=== PATIENT | female | born 1965 ===

== ENCOUNTER 2017-03-04 17:19 | Emergency (ER) | payer OTHER ==
[2017-03-04 17:26] VITALS: RESP 18
[2017-03-04 18:36] LABS: BASO % 0.4 % (0.0-2.0); EOS # 0.1 K/uL (0.0-0.7); EOS % 1.1 % (0.0-4.0); LYMPH # 1.7 K/uL (1.0-4.3); LYMPH % 34.2 % (20.0-40.0); MEAN CELL VOLUME 91.1 fL (81.0-99.0); MEAN CORPUSCULAR HEMOGLOBIN 30.9 pg (27.0-31.0); MEAN CORPUSCULAR HGB CONC 33.9 g/dL (33.0-37.0); MEAN PLATELET VOLUME 8.1 fL (7.2-11.7); MONO # 0.6 K/uL (0.0-0.8); MONO % 11.3 % (0.0-10.0); NEUT # 2.7 K/uL (1.8-7.0); NRBC % 0.1 % (0.0-2.0); RBC 3.9 Mil/uL (3.80-5.20); RED CELL DISTRIBUTION WIDTH 14.1 % (11.5-14.5); WHITE BLOOD COUNT 5.1 K/uL (4.8-10.8)
[2017-03-04 18:48] LABS: ALBUMIN 4.1 g/dL (3.5-5.0)
[2017-03-04 18:51] LABS: GFR AFRICAN-AMERICAN > 60; GFR NON-AFRICAN AMERICAN > 60
[2017-03-04 18:52] LABS: ALB/GLOB RATIO 1.2 (1.0-2.1); ALT/SGPT 41 U/L (9-52); AST/SGOT 36 U/L (14-36); BLOOD UREA NITROGEN 12 mg/dL (7-17); CALCIUM 8.8 mg/dl (8.6-10.4)
[2017-03-04 19:00] LABS: B-TYPE NATRIURETIC PEPTIDE 30.1 pg/mL (0-900)
[2017-03-04] MEDS ORDERED: Potassium Chloride 20 mEq/15 ml LIQ UD PO STA (19:18)
[2017-03-04] MEDS ORDERED: Potassium Chloride 20 mEq ER Tab PO ONE (19:20)
[2017-03-04 21:17] VITALS: BP 132/84; PULSE 82; TEMP 98.2; O2SAT 99
--- NOTE | 2017-03-04 22:08 | C.PDOC ---
History Of Present Illness 51 year old female presents to the ED with complaints of bilateral foot and hand swelling with pain for one week. Patient states she awakes with pain but it is alleviated by movement. She denies trauma, chest pain, SOB, weakness, or numbness. Time Seen by Provider: 03/04/17 18:19 Chief Complaint (Nursing): Medical Clearance History Per: Patient History/Exam Limitations: no limitations Onset/Duration Of Symptoms: Days (1 week ) Current Symptoms Are (Timing): Still Present Recent travel outside of the [place]: No Past Medical History Reviewed: Historical Data, Nursing Documentation, Vital Signs Vital Signs: Last Vital Signs Temp 98.2 F 03/04/17 21:17 Pulse 82 03/04/17 21:17 Resp 18 03/04/17 21:17 BP 132/84 03/04/17 21:17 Pulse Ox 99 03/04/17 22:22 - Medical History PMH: Asthma Surgical History: Appendectomy - [facility] Procedures IRRIGATION OF EAR (02/23/15) OTHER SKIN & SUBQ I D (01/26/14) Family History: States: Unknown Family Hx - Social History Hx Tobacco Use: Yes Hx Alcohol Use: Yes Hx Substance Use: No - Immunization History Hx Tetanus Toxoid Vaccination: No Hx Influenza Vaccination: No Hx Pneumococcal Vaccination: No Review Of Systems Constitutional: Negative for: Fever, Chills Cardiovascular: Negative for: Chest Pain, Palpitations Respiratory: Negative for: Shortness of Breath Gastrointestinal: Negative for: Nausea, Vomiting Musculoskeletal: Positive for: Hand Pain (swelling and pain in bilateral hands) , Foot Pain (swelling in bilateral feet ) Neurological: Negative for: Weakness, Numbness Physical Exam - Physical Exam Appears: Non-toxic, No Acute Distress Skin: Warm, Dry Head: Atraumatic Eye(s): bilateral: Normal Inspection, PERRL, EOMI Oral Mucosa: Moist Neck: Supple Chest: Symmetrical, No Deformity Cardiovascular: Rhythm Regular Respiratory: Normal Breath Sounds, No Rhonchi, No Wheezing Extremity: Normal ROM, Tenderness (Tenderness to MCP joints of both hands ), Other (Edema of the lower extremities ) Neurological/Psych: Oriented x3 ED Course And Treatment - Laboratory Results Result Diagrams: 03/04/17 18:33 03/04/17 18:33 O2 Sat by Pulse Oximetry: 99 (room air ) Progress Note: Toradol and Flexeril were given and the patient notes improvement. Patient notes she does not have a PMD and was referred to the clinic to follow up. Disposition - Disposition Referrals: [facility] [Outside] [facility] [Outside] Disposition: HOME/ ROUTINE Disposition Time: 20:50 Condition: GOOD Additional Instructions: Thank you for letting us take care of you today. Your provider was Dr. Lozano. The emergency medical care you received today was directed at your acute symptoms. If you were prescribed any medication, please fill it and take as directed. It may take several days for your symptoms to resolve. Return to the Emergency Department if your symptoms worsen, do not improve, or if you have any other problems. Please contact your doctor or call one of the physicians/clinics you have been referred to that are listed on the Patient Visit Information form that is included in your discharge packet. Bring any paperwork you were given at discharge with you along with any medications you are taking to your follow up visit. Our treatment cannot replace ongoing medical care by a primary care provider (PCP) outside of the emergency department. Thank you for allowing the [facility] team to be part of your care today. Follow up with the clinic for outpatient care. Prescriptions: Cyclobenzaprine [Cyclobenzaprine HCl] 10 mg PO Q8 PRN #20 tab PRN Reason: Muscle Spasm Ibuprofen [Motrin] 600 mg PO Q6 PRN #20 tab PRN Reason: Pain, Moderate (4-7) predniSONE [Prednisone] 40 mg PO DAILY #10 tab Instructions: Arthritis (ED) Forms: [employer] ([place]) - Clinical Impression Clinical Impression: Arthritis - Scribe Statement The provider has reviewed the documentation as recorded by the Scribe Tiffany Devries All medical record entries made by the Scribe were at my direction and personally dictated by me. I have reviewed the chart and agree that the record accurately reflects my personal performance of the history, physical exam, medical decision making, and the department course for this patient. I have also personally directed, reviewed, and agree with the discharge instructions and disposition.
== END 2017-03-04 21:18 | disposition home or self-care (01) ==
LOC: C.ER 17:19
DX: M19.042 Primary osteoarthritis, left hand (principal); M19.041 Primary osteoarthritis, right hand; M19.072 Primary osteoarthritis, left ankle and foot; M19.071 Primary osteoarthritis, right ankle and foot
CPT/HCPCS: 80053; 83880; 85025; 85651; 87040; 96374; 99285; J1885

== ENCOUNTER 2017-04-08 16:06 | Inpatient (IN) | payer MEDICAID, OTHER ==
--- NOTE | 2017-04-08 17:33 | C.PDOC ---
History Of Present Illness Patient is a 52 y/o female who presents to the ED with complaints of chest pain and shortness of breath for the past three days. Patient notes she has pain on the right side of her body and bilateral swelling of the legs since onset of symptoms. Admits to gaining weight recently. Denies fever and any other complaints at this time. Time Seen by Provider: 04/08/17 17:20 Chief Complaint (Nursing): Shortness Of Breath History Per: Patient History/Exam Limitations: no limitations Onset/Duration Of Symptoms: Days (x3 days. ) Current Symptoms Are (Timing): Still Present Recent travel outside of the [place]: No Past Medical History Reviewed: Historical Data, Nursing Documentation, Vital Signs Vital Signs: Last Vital Signs Temp 98.1 F 04/09/17 16:09 Pulse 81 04/09/17 16:09 Resp 20 04/09/17 16:09 BP 147/77 04/09/17 16:09 Pulse Ox 97 04/09/17 16:09 - Medical History PMH: Asthma Surgical History: Appendectomy - [facility] Procedures IRRIGATION OF EAR (02/23/15) OTHER SKIN & SUBQ I D (01/26/14) Family History: States: Unknown Family Hx - Social History Hx Tobacco Use: Yes Hx Alcohol Use: Yes Hx Substance Use: No - Immunization History Hx Tetanus Toxoid Vaccination: No Hx Influenza Vaccination: No Hx Pneumococcal Vaccination: No Review Of Systems Except As Marked, All Systems Reviewed And Found Negative. Cardiovascular: Positive for: Chest Pain Respiratory: Positive for: Shortness of Breath Musculoskeletal: Positive for: Other (R sided body pain; bilateral leg swelling. ) Physical Exam - Physical Exam Appears: Well, Non-toxic, No Acute Distress Skin: Normal Color, Warm, Dry Head: Atraumatic, Normacephalic Oral Mucosa: Moist Chest: Symmetrical Cardiovascular: Rhythm Regular, No Murmur Respiratory: Normal Breath Sounds, No Rales, No Rhonchi, No Wheezing Gastrointestinal/Abdominal: Soft, No Tenderness Neurological/Psych: Oriented x3, Normal Speech, Normal Cognition ED Course And Treatment - Laboratory Results Result Diagrams: 04/08/17 17:52 04/08/17 17:52 ECG: Interpreted By Me, Viewed By Me ECG Rhythm: Sinus Bradycardia Rate From EC (bpm) O2 Sat by Pulse Oximetry: 99 (Room air) Pulse Ox Interpretation: Normal Progress Note: EKG, UA, Blood work, CXR ordered. Medical Decision Making Medical Decision Making: r/o pe, acs, dvt Plan: EKG, UA, Blood work, CXR ordered. dimer elevated, cta ordered. cta is non conclussive. discussed with dr cuevas, requests v/q, lovenox, obs admission. dr cuevas, on blue list, requests dr cano to [facility]- dr cano accepts Disposition - Disposition Disposition: HOSPITALIZED Disposition Time: 11:00 Condition: STABLE - Clinical Impression Clinical Impression: Chest pain, Leg swelling - Scribe Statement The provider has reviewed the documentation as recorded by the Scribe Angelina Leonard All medical record entries made by the Scribe were at my direction and personally dictated by me. I have reviewed the chart and agree that the record accurately reflects my personal performance of the history, physical exam, medical decision making, and the department course for this patient. I have also personally directed, reviewed, and agree with the discharge instructions and disposition. Decision To Admit - Pt Status Changed To: Hospital Disposition Of: Observation - . Bed Request Type: Telemetry Admitting Physician: Anthony Cano Patient Diagnosis: Chest pain, Leg swelling
[2017-04-08 17:55] LABS: BASO % 0.4 % (0.0-2.0); EOS % 0.3 % (0.0-4.0); LYMPH # 1.3 K/uL (1.0-4.3); LYMPH % 26.4 % (20.0-40.0); MEAN CELL VOLUME 92.7 fL (81.0-99.0); MEAN CORPUSCULAR HEMOGLOBIN 30.9 pg (27.0-31.0); MEAN CORPUSCULAR HGB CONC 33.3 g/dL (33.0-37.0); MEAN PLATELET VOLUME 8.2 fL (7.2-11.7); MONO # 0.5 K/uL (0.0-0.8); MONO % 9.5 % (0.0-10.0); RED CELL DISTRIBUTION WIDTH 13.9 % (11.5-14.5)
[2017-04-08 18:03] LABS: CHLORIDE 104 mmol/L (98-107); POTASSIUM 3.3 mmol/L (3.6-5.2); SODIUM 141 mmol/L (132-148)
[2017-04-08 18:05] LABS: ALB/GLOB RATIO 1.3 (1.0-2.1); ALKALINE PHOSPHATASE 79 U/L (38-126); AST/SGOT 26 U/L (14-36); BILIRUBIN,TOTAL 0.5 mg/dL (0.2-1.3); BLOOD UREA NITROGEN 16 mg/dL (7-17); CARBON DIOXIDE 26 mmol/L (22-30); GFR AFRICAN-AMERICAN > 60; TOTAL PROTEIN 7.2 g/dL (6.3-8.3)
[2017-04-08 18:06] LABS: ALT/SGPT 35 U/L (9-52); CALCIUM 8.7 mg/dl (8.6-10.4); GLUCOSE,RANDOM 93 mg/dL (65-105); INR 1.1
[2017-04-08] MEDS ORDERED: Iodixanol 320 MG/ML 100 ML BOTTLE IV ONE (18:54)
[2017-04-08 20:13] LABS: RBC URINE 1 /hpf (0-3); URINE BACTERIA OCC (<OCC); URINE BILIRUBIN NEGATIVE (NEGATIVE); URINE BLOOD NEGATIVE (NEGATIVE); URINE COLOR Yellow (YELLOW); URINE GLUCOSE (UA) NORMAL (Normal); URINE KETONE NEGATIVE (NEGATIVE); URINE LEUKOCYTE ESTERASE TRACE Leu/uL (Negative); URINE PROTEIN NEGATIVE (NEGATIVE); URINE UROBILINOGEN NORMAL mg/dL (0.2-1.0); WBC URINE 4 /hpf (0-5)
--- NOTE | 2017-04-08 20:18 | CT ---
EXAM: CT Angiography Chest With Intravenous Contrast EXAM DATE/TIME: 04/08/2017 6:27 PM CLINICAL HISTORY: 52 years old, female; Signs and symptoms; Dyspnea; Additional info: Cp SOB elevated dimer TECHNIQUE: Axial computed tomographic angiography images of the chest with intravenous contrast using pulmonary embolism protocol. All CT scans at this facility use one or more dose reduction techniques, viz.: automated exposure control; ma/kV adjustment per patient size (including targeted exams where dose is matched to indication; i.e. head); or iterative reconstruction technique. MIP reconstructed images were created and reviewed. Coronal and sagittal reformatted images were created and reviewed. CONTRAST: 100 mL of 100 ml visipaque 320 administered intravenously. COMPARISON: No relevant prior studies available. FINDINGS: PULMONARY ARTERIES: Contrast opacification of the pulmonary arteries is suboptimal. There is no evidence of pulmonary embolism involving the large/central pulmonary arteries. The exam is nondiagnostic for emboli in the smaller pulmonary artery branches, however, due to suboptimal IV contrast opacification. AORTA: No evidence of aortic dissection. LUNGS: Incidental 6 x 4 mm noncalcified pulmonary nodule in the right lung, image 59/series 3. Additional 3 mm noncalcified nodule in the right lung, image 59/series 3. In low-risk patients (minimal or absent history of smoking or other known risk factors), no follow-up is necessary. For high-risk patients (history of smoking or other known risk factors), an optional chest CT at 12 months could be performed. Patchy groundglass densities in the posterior aspects of the lungs bilaterally, with an appearance and location most suggestive of dependent atelectasis. No definite focal consolidation/infiltrate is seen in the lungs. No evidence of diffuse pulmonary vascular congestion. Patent large airways. PLEURAL SPACE: No pneumothorax or pleural effusions seen. HEART: No evidence of significant pericardial effusion. BONES/JOINTS: No acute bony abnormality identified. SOFT TISSUES: No acute abnormality of the visualized soft tissues seen. LYMPH NODES: No evidence of diffuse lymphadenopathy. IMPRESSION: - No evidence of significant acute process. However, the exam is nondiagnostic for pulmonary emboli except in the large/central pulmonary arteries, which appear grossly patent. If there is ongoing clinical concern for pulmonary emboli, consider V/Q scan or lower extremity venous ultrasound for further evaluation. - Incidental subcentimeter pumonary nodules. See recommendations above. - See above for remaining findings.
[2017-04-08] MEDS ORDERED: Potassium Chloride 20 mEq ER Tab PO STA (21:38)
[2017-04-08] MEDS ORDERED: Potassium Chloride 20 mEq ER Tab PO ONE (21:55)
[2017-04-08] MEDS ORDERED: Enoxaparin 150 mg Syringe SC STA (22:05)
[2017-04-08] MEDS ORDERED: Enoxaparin 80 mg Syringe SC STA (22:12)
--- NOTE | 2017-04-09 01:52 | CP.PCM.HP ---
<Michael Calderón - Last Filed: 04/09/17 01:32> History of Present Illness - History of Present Illness History of Present Illness: PGY1 Medicine Note for Dr. Cano 52 year old female with a PMH of asthma presents to the ED with a 3 day history of SOB, CP and UE/LE weakness b/l. The patient states that she started noticing pain in her neck a 3 days ago. She states that she did not have any trauma, did not sleep on it wrong and just began to notice the pain while at work. 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 Along with the pain in her neck, she began noticing pain in her UEs and LEs b/l. This pain is sharp, worse with movement and palpation. The patient states she has difficulty moving her joints due to the pain. The patient reports swelling b/l LE edema since the onset of cp and sob 3 days ago. She elevated her legs and the swelling has since resolved. The patient has attempted to take use her inhaler but it has not improved her sob. Patient denies ever having these symptoms previously. Patient denies fevers, chills, n/v, d/c PMH: Asthma PSH: Appendectomy Social: Current smoker, occasionally alcohol, denies illicit drug use. Allergies: NKDA Present on Admission - Present on Admission Any Indicators Present on Admission: No Review of Systems - Review of Systems All systems: reviewed and no additional remarkable complaints except - Constitutional Constitutional: As Per HPI - EENT Eyes: As Per HPI Ears: As Per HPI Nose/Mouth/Throat: As Per HPI - Breasts Breasts: As Per HPI - Cardiovascular Cardiovascular: As Per HPI - Respiratory Respiratory: As Per HPI - Gastrointestinal Gastrointestinal: As Per HPI - Genitourinary Genitourinary: As Per HPI - Reproductive: Female Reproductive:Female: As Per HPI - Menstruation Menstruation: As Per HPI - Musculoskeletal Musculoskeletal: As Per HPI - Integumentary Integumentary: As Per HPI - Neurological Neurological: As Per HPI - Psychiatric Psychiatric: As Per HPI - Endocrine Endocrine: As Per HPI - Hematologic/Lymphatic Hematologic: As Per HPI Past Patient History - Infectious Disease Hx of Infectious Diseases: None - Past Medical History & Family History Past Medical History?: Yes - Past Social History Smoking Status: Former Smoker - CARDIAC Hx Cardiac Disorders: No - PULMONARY Hx Respiratory Disorders: Yes Hx Asthma: Yes - NEUROLOGICAL Hx Neurological Disorder: No - HEENT Hx HEENT Problems: No - RENAL Hx Chronic Kidney Disease: No - ENDOCRINE/METABOLIC Hx Endocrine Disorders: No - HEMATOLOGICAL/ONCOLOGICAL Hx Blood Disorders: No - INTEGUMENTARY Hx Dermatological Problems: No - MUSCULOSKELETAL/RHEUMATOLOGICAL Hx Falls: No Other/Comment: had surgery for pack pain - GASTROINTESTINAL Hx Gastrointestinal Disorders: No - GENITOURINARY/GYNECOLOGICAL Hx Genitourinary Disorders: No - PSYCHIATRIC Hx Psychophysiologic Disorder: No Hx Substance Use: No - SURGICAL HISTORY Hx Surgeries: Yes Hx Appendectomy: Yes - ANESTHESIA Hx Anesthesia: Yes Hx Anesthesia Reactions: No Meds Allergies/Adverse Reactions: Allergies Allergy/AdvReac Type Severity Reaction Status Date / Time No Known Allergies Allergy Verified 03/04/17 17:26 Physical Exam - Constitutional Appears: Well, Non-toxic, No Acute Distress - Head Exam Head Exam: ATRAUMATIC, NORMOCEPHALIC - Eye Exam Eye Exam: EOMI, Normal appearance - ENT Exam ENT Exam: Mucous Membranes Moist - Neck Exam Neck exam: Positive for: Tenderness. Negative for: Meningismus Additional comments: Decreased ROM; Pain with passive/active ROM testing. Pain with compression of head on spinal cord. Unable to reproduce numbness/pain in extremities due to acute tenderness in neck. - Respiratory Exam Respiratory Exam: NORMAL BREATHING PATTERN. absent: Respiratory Distress - Cardiovascular Exam Cardiovascular Exam: REGULAR RHYTHM. absent: JVD - GI/Abdominal Exam GI & Abdominal Exam: Soft. absent: Distended - Extremities Exam Extremities exam: Positive for: calf tenderness (b/l), normal capillary refill, tenderness (tender to palpation of all four extremities; decreased ROM in all four extremities due to pain. ), pedal pulses present. Negative for: full ROM - Neurological Exam Neurological exam: Alert, Oriented x3 - Skin Skin Exam: Dry, Intact, Normal Color, Warm Results - Vital Signs Recent Vital Signs: Last Vital Signs Temp 98.1 F 04/08/17 23:41 Pulse 59 L 04/09/17 01:00 Resp 20 04/09/17 00:44 BP 157/72 H 04/09/17 00:44 Pulse Ox 98 04/09/17 00:44 - Labs Result Diagrams: 04/08/17 17:52 04/08/17 17:52 Assessment & Plan - Assessment and Plan (Free Text) Plan: Chest Pain Chest CTA - PULMONARY ARTERIES: Contrast opacification of the pulmonary arteries is suboptimal. There is no evidence of pulmonary embolism involving the large/central pulmonary arteries. The exam is nondiagnostic for emboli in the smaller pulmonary artery branches, however, due to suboptimal IV contrast opacification. AORTA: No evidence of aortic dissection. LUNGS: Incidental 6 x 4 mm noncalcified pulmonary nodule in the right lung, image 59/series 3. Additional 3 mm noncalcified nodule in the right lung, image 59/series 3. In low-risk patients (minimal or absent history of smoking or other known risk factors), no follow-up is necessary. For high-risk patients (history of smoking or other known risk factors), an optional chest CT at 12 months could be performed. Patchy groundglass densities in the posterior aspects of the lungs bilaterally, with an appearance and location most suggestive of dependent atelectasis. No definite focal consolidation/ infiltrate is seen in the lungs. No evidence of diffuse pulmonary vascular congestion. Patent large airways. - No evidence of significant acute process. However, the exam is nondiagnostic for pulmonary emboli except in the large/central pulmonary arteries, which appear grossly patent. If there is ongoing clinical concern for pulmonary emboli, consider V/Q scan or lower extremity venous ultrasound for further evaluation. Incidental subcentimeter pumonary nodules. See recommendations above. - EKG - Sinus Bradycardia @57bpm, normal axis, otherwise normal ekg - Troponin - <0.012 - D-dimer - 294 - BNP - 79.1 - VQ scan scheduled for morning Neck Pain/Extremity Weakness - MRI of cervical spine w/o scheduled for morning - Started on Prednisone 40 mg PO - Started on Valium 5 mg PO Q6H PRN Prophylactic Care - Lovenox SC Case discussed with Dr. Jerome Lojan PGY1 <Anthony Cano P - Last Filed: 04/10/17 07:31> Results - Vital Signs Recent Vital Signs: Last Vital Signs Temp 97.2 F L 04/09/17 23:15 Pulse 62 04/09/17 23:35 Resp 20 04/09/17 23:15 BP 151/77 H 04/09/17 23:15 Pulse Ox 97 04/09/17 23:15 - Labs Result Diagrams: 04/08/17 17:52 04/08/17 17:52 Labs: Laboratory Results - last 24 hr 04/09/17 04/09/17 04/09/17 09:03 09:03 09:03 ESR 30 H Lactate Dehydrogenase 494 Total Creatine Kinase 95 Rheum Arthritis Panel Negative Attending/Attestation - Attestation I have personally seen and examined this patient.: Yes I have fully participated in the care of the patient.: Yes I have reviewed all pertinent clinical information: Yes Notes (Text): Patient's c/o leg swelling but not found objectively, elevated ddimer with non conclusive CTA, hence in ER given therapeutic lovenox and V/Q ordered but clinically low probability to begin with. Patient has stiffness in all 4 ext, which she c/o pain in shoulder no significant local tenderness but sensitivity in all 4 limbs, neck tenderness should r/o central compression of spinal cord with MRI, mean while oral prednisone, valium, cervical soft collar. DD is arthragia.
[2017-04-09] MEDS: Pantoprazole 40 mg EC Tab PO SCH (09:12)
--- NOTE | 2017-04-09 09:15 | CP.PCM.PN ---
Addendum entered and electronically signed by Abigail Mccann 04/09/17 18:54 : 2.) Bilateral upper and lower Extremity Weakness and Pain secondary to disk herniation vs. auto-immune Neurology Consult: Dr. Carmona --> help appreciated - MRI of cervical spine - patient refused because she states she is claustrophobic - X-ray of bilateral shoulder: Prominent bony spurring at the bilateral greater tuberosities of the proximal humeri. If pain persists, consider MRI. - f/u CT of cervical spine - f/u Venous Duplex scan - f/u TSH, Lyme titers, MOISÉS - Started on Prednisone 40 mg PO - Started on Valium 5 mg PO Q6H PRN Original Note: <Abigail cMcann - Last Filed: 04/09/17 18:38> Subjective - Date & Time of Evaluation Date of Evaluation: 04/09/17 Time of Evaluation: 09:00 - Subjective Subjective: Medicine Progress Note: Patient was seen and examined at bedside in the AM. Patient states this weakness began on Sunday but it got worse overnight. Patient states she could not completely open her right hand today. She states she felt weak especially on her right upper extremity. Patient states she has bilateral upper and lower extremity pain that is currently a 6/10 pain which has improved on admission which was a 10/10 pain. Patient states she has chest pain to touch on right side. Patient denies shortness of breath or difficulty breathing. 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 Objective - Vital Signs/Intake and Output Vital Signs (last 24 hours): Temp Pulse Resp BP Pulse Ox 98.1 F 55 L 15 149/69 98 04/08/17 23:41 04/09/17 05:30 04/09/17 05:30 04/09/17 04:59 04/09/17 04:00 - Medications Medications: Current Medications Diazepam (Valium) 5 mg PO Q6 PRN PRN Reason: Anxiety Last Admin: 04/09/17 08:51 Dose: 5 mg Pantoprazole Sodium (Protonix Ec Tab) 40 mg PO DAILY [facility] Last Admin: 04/09/17 09:12 Dose: 40 mg Prednisone (Prednisone Tab) 40 mg PO DAILY@1600 [facility] Last Admin: 04/09/17 00:40 Dose: 40 mg - Labs Labs: PT 11.9 SECONDS (9.7-12.2) 04/08/17 17:52 INR 1.1 04/08/17 17:52 APTT 30 SECONDS (21-34) 04/08/17 17:52 - Constitutional Appears: No Acute Distress - Head Exam Head Exam: ATRAUMATIC, NORMAL INSPECTION, NORMOCEPHALIC - Eye Exam Eye Exam: EOMI, Normal appearance, PERRL Pupil Exam: NORMAL ACCOMODATION - ENT Exam ENT Exam: Mucous Membranes Moist - Respiratory Exam Respiratory Exam: Chest Wall Tenderness (right side of chest is tender to palpation ), Clear to Ausculation Bilateral, NORMAL BREATHING PATTERN - Cardiovascular Exam Cardiovascular Exam: REGULAR RHYTHM, RRR, +S1, +S2. absent: JVD - GI/Abdominal Exam GI & Abdominal Exam: Soft, Normal Bowel Sounds. absent: Tenderness - Extremities Exam Extremities Exam: Full ROM (tenderness with all movments - abduction/adduction ) , Tenderness (bilateral tenderness ). absent: Joint Swelling, Pedal Edema - Neurological Exam Neurological Exam: Alert, Awake, CN II-XII Intact, Oriented x3 Neuro motor strength exam: Left Upper Extremity: 5, Right Upper Extremity: 5, Left Lower Extremity: 5, Right Lower Extremity: 5 - Psychiatric Exam Psychiatric exam: Normal Affect, Normal Mood - Skin Skin Exam: Normal Color, Warm Assessment and Plan - Assessment and Plan (Free Text) Plan: 1.) Chest Pain secondary to PE vs. [place] vs. Costochondritis - Chest CTA PULMONARY ARTERIES: Contrast opacification of the pulmonary arteries is suboptimal. There is no evidence of pulmonary embolism involving the large/central pulmonary arteries. The exam is nondiagnostic for emboli in the smaller pulmonary artery branches, however, due to suboptimal IV contrast opacification. AORTA: No evidence of aortic dissection. LUNGS: Incidental 6 x 4 mm noncalcified pulmonary nodule in the right lung, image 59/series 3. Additional 3 mm noncalcified nodule in the right lung, image 59/series 3. In low-risk patients (minimal or absent history of smoking or other known risk factors), no follow-up is necessary. For high-risk patients (history of smoking or other known risk factors), an optional chest CT at 12 months could be performed. Patchy groundglass densities in the posterior aspects of the lungs bilaterally, with an appearance and location most suggestive of dependent atelectasis. No definite focal consolidation/ infiltrate is seen in the lungs. No evidence of diffuse pulmonary vascular congestion. - EKG - Sinus Bradycardia @57bpm, normal axis, otherwise normal ekg - Troponin - <0.012 - D-dimer - 294 - BNP - 79.1 - VQ scan: Low probability ventilation perfusion scan for PE 2.) Bilateral upper and lower Extremity Weakness and Pain secondary to disk herniation vs. auto-immune Neurology Consult: Dr. Carmona --> help appreciated - MRI of cervical spine - patient refused because she states she is claustrophobic - f/u CT of cervical spine - f/u Venous Duplex scan - f/u TSH, Lyme titers, MOISÉS - Started on Prednisone 40 mg PO - Started on Valium 5 mg PO Q6H PRN 3.) Prophylactic Care - Lovenox 40mg SC daily - Protonix 40mg PO daily - Physical Therapy <Chirag Arteaga - Last Filed: 04/10/17 08:53> Objective - Vital Signs/Intake and Output Vital Signs (last 24 hours): Temp Pulse Resp BP Pulse Ox 97.5 F L 59 L 20 198/75 H 97 04/10/17 07:59 04/10/17 07:59 04/10/17 07:59 04/10/17 07:59 04/10/17 07:59 Intake and Output: 04/10/17 04/10/17 06:59 18:59 Intake Total 400 Balance 400 - Medications Medications: Current Medications Acetaminophen (Tylenol 325mg Tab) 650 mg PO Q6 PRN PRN Reason: Pain, moderate (4-7) Diazepam (Valium) 5 mg PO Q6 PRN PRN Reason: Anxiety Last Admin: 04/09/17 08:51 Dose: 5 mg Enoxaparin Sodium (Lovenox) 40 mg SC DAILY [facility] Ketorolac Tromethamine (Toradol) 30 mg IVP Q6 PRN Last Admin: 04/10/17 00:23 Dose: 30 mg Pantoprazole Sodium (Protonix Ec Tab) 40 mg PO DAILY [facility] Last Admin: 04/09/17 09:12 Dose: 40 mg Prednisone (Prednisone Tab) 40 mg PO DAILY@1600 [facility] Last Admin: 04/09/17 19:14 Dose: 40 mg - Labs Labs: 04/10/17 08:19 PT 11.9 SECONDS (9.7-12.2) 04/08/17 17:52 INR 1.1 04/08/17 17:52 APTT 30 SECONDS (21-34) 04/08/17 17:52 Attending/Attestation - Attestation I have personally seen and examined this patient.: Yes I have fully participated in the care of the patient.: Yes I have reviewed all pertinent clinical information, including history, physical exam and plan: Yes Notes (Text): 04/10/17 08:52 Patient was seen and examined at bedside with the resident Patient still complains of for pain in the right shoulder on movement. Patient also complains of pain in the lower extremities upon palpation We will obtain an x-ray of the shoulders. Patient has refused MRI of the cervical spine. We will obtain a CAT scan of the cervical spine instead We will request a neurology evaluation for the [id number] recommendations. I discussed the plan of care with the resident and agree with the history and physical and assessment/plan documented.
--- NOTE | 2017-04-09 09:53 | RAD ---
PROCEDURE: CHEST RADIOGRAPH, 1 VIEW HISTORY: chest pain COMPARISON: 07/26/2016 FINDINGS: LUNGS: Mild venous congestion. PLEURA: No pneumothorax or pleural fluid seen. CARDIOVASCULAR: Normal. OSSEOUS STRUCTURES: No significant abnormalities. VISUALIZED UPPER ABDOMEN: Normal. OTHER FINDINGS: None. IMPRESSION: Mild venous congestion.
--- NOTE | 2017-04-09 12:34 | CARD ---
APPROVED REPORT EKG Measurement Heart [id number] [id number] <Conclusion> Sinus bradycardia Otherwise normal ECG
--- NOTE | 2017-04-09 13:31 | NM ---
COMPARISON: Chest CT 04/08/2017. TECHNIQUE: 6.2 mCi technetium 99-m Xe-133 Gas. 3.8 mCI technetium 99-m MAA administered intravenously. FINDINGS: VENTILATION COMPONENT: Normal PERFUSION COMPONENT: No perfusion mismatches. IMPRESSION: Lowprobability ventilation perfusion scan for pulmonary embolism.
--- NOTE | 2017-04-09 15:11 | RAD ---
Bilateral shoulders 6 views History: Shoulder pain. Comparison: None available. Findings: Right shoulder: Prominent productive change and bony spurring seen at the level of the right greater tuberosity of the proximal humerus. Mild narrowing of the right glenohumeral joint space. Moderate degenerative changes of the right acromioclavicular joint space with bony hypertrophy. Small granuloma and or nodule projecting over the right upper lung zone. Left shoulder: Prominent bony productive change and or spurring noted at the level of the left greater tuberosity of the proximal humerus with some adjacent spurring noted at the corresponding bony acromion. Mild narrowing of the left glenohumeral joint space. Left acromioclavicular joint space appears preserved. Impression: Prominent bony spurring at the bilateral greater tuberosities of the proximal humeri. If pain persists, consider MRI.
--- NOTE | 2017-04-09 17:07 | CP.PCM.CON ---
History of Present Illness - History of Present Illness History of Present Illness: Mrs. Hogan is a 52-year-old woman with a past medical history of asthma, COPD, current smoker, who presented to the ED complaining of right-sided chest pain, swelling and weakness in the right arm and leg. She also has some swelling and weakness in the left arm and leg, but not as bad as the right side. She also complains of headache and neck pain. She denies fevers, but admits to feeling flushed and having joint and hand swelling. She states that her right hand feels stiff, but it improves with exercise and more movement throughout the day. Review of Systems - Review of Systems All systems: reviewed and no additional remarkable complaints except Past Patient History - Infectious Disease Hx of Infectious Diseases: None - Past Medical History & Family History Past Medical History?: Yes - Past Social History Smoking Status: Former Smoker - CARDIAC Hx Cardiac Disorders: No - PULMONARY Hx Asthma: Yes - NEUROLOGICAL Hx Neurological Disorder: No - HEENT Hx HEENT Problems: No - RENAL Hx Chronic Kidney Disease: No - ENDOCRINE/METABOLIC Hx Endocrine Disorders: No - HEMATOLOGICAL/ONCOLOGICAL Hx Blood Disorders: No - INTEGUMENTARY Hx Dermatological Problems: No - MUSCULOSKELETAL/RHEUMATOLOGICAL Hx Falls: No Other/Comment: had surgery for pack pain - GASTROINTESTINAL Hx Gastrointestinal Disorders: No - GENITOURINARY/GYNECOLOGICAL Hx Genitourinary Disorders: No - PSYCHIATRIC Hx Substance Use: No - SURGICAL HISTORY Hx Appendectomy: Yes - ANESTHESIA Hx Anesthesia: Yes Hx Anesthesia Reactions: No Meds Allergies/Adverse Reactions: Allergies Allergy/AdvReac Type Severity Reaction Status Date / Time No Known Allergies Allergy Verified 03/04/17 17:26 - Medications Medications: Current Medications Acetaminophen (Tylenol 325mg Tab) 650 mg PO Q6 PRN PRN Reason: Pain, moderate (4-7) Diazepam (Valium) 5 mg PO Q6 PRN PRN Reason: Anxiety Last Admin: 04/09/17 08:51 Dose: 5 mg Enoxaparin Sodium (Lovenox) 40 mg SC DAILY [facility] Ketorolac Tromethamine (Toradol) 30 mg IVP Q6 PRN Last Admin: 04/09/17 15:01 Dose: 30 mg Pantoprazole Sodium (Protonix Ec Tab) 40 mg PO DAILY [facility] Last Admin: 04/09/17 09:12 Dose: 40 mg Prednisone (Prednisone Tab) 40 mg PO DAILY@1600 [facility] Last Admin: 04/09/17 00:40 Dose: 40 mg Physical Exam - Constitutional Appears: Well - Head Exam Additional comments: Appears to have inflamed and swollen cheeks, almost in a butterfly pattern. - Eye Exam Eye Exam: EOMI, Normal appearance, PERRL - ENT Exam ENT Exam: Mucous Membranes Moist, Normal Exam - Neck Exam Neck exam: Positive for: Normal Inspection - Respiratory Exam Respiratory Exam: Clear to Auscultation Bilateral, NORMAL BREATHING PATTERN - Cardiovascular Exam Cardiovascular Exam: REGULAR RHYTHM, +S1, +S2 - GI/Abdominal Exam GI & Abdominal Exam: Normal Bowel Sounds, Soft. absent: Tenderness - Rectal Exam Rectal Exam: Deferred - Extremities Exam Extremities exam: Positive for: calf tenderness, joint swelling, tenderness - Back Exam Back exam: paraspinal tenderness, rash noted - Neurological Exam Neurological exam: Abnormal Gait, CN II-XII Intact, Oriented x3, Reflexes Normal - Expanded Neurological Exam Expanded Patient oriented to: person, place, time Cranial nerves: EOM's Intact: Normal, Facial Sensation: Normal, Gag Reflex: Normal Ataxia: No Cerebellar Function: Finger to Nose: Normal, Heel to Wilde: Normal Upper motor neuron: Babinski Sign: Normal, Pronator Drift: Normal Sensory exam: Lower Extremity Light Touch: Normal, Lower Extremity Pin Prick: Normal, Upper Extremity Light Touch: Normal, Upper Extremity Pin Prick: Normal Neuro motor strength exam: Left Upper Extremity: 5, Right Upper Extremity: 5 ( 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), Left Lower Extremity: 5, Right Lower Extremity: 5 DTR: Achilles Tendon Left: 2+, Achilles Tendon Right: 2+, Bicep Left: 2+, Bicep Right: 2+, Brachioradialis Left: 2+, Brachioradialis Right: 2+, Patellar Left: 2 +, Patellar Right: 2+, Tricep Left: 2+, Tricep Right: 2+ - Psychiatric Exam Psychiatric exam: Normal Affect, Normal Mood - Skin Skin Exam: Dry, Intact, Normal Color, Warm Results - Vital Signs Recent Vital Signs: Last Vital Signs Temp 98.1 F 04/09/17 16:09 Pulse 81 04/09/17 16:09 Resp 20 04/09/17 16:09 BP 147/77 04/09/17 16:09 Pulse Ox 99 04/09/17 16:57 - Labs Result Diagrams: 04/08/17 17:52 04/08/17 17:52 Labs: Laboratory Results - last 24 hr 04/09/17 04/09/17 04/09/17 09:03 09:03 09:03 ESR 30 H Lactate Dehydrogenase 494 Total Creatine Kinase 95 Rheum Arthritis Panel Negative Assessment & Plan (1) Generalized weakness Assessment and Plan: There appears to be an inflammatory joint disorder and possibly involving muscle. She does not have any focal neurologic deficits, but the neck pain and upper extremity weakness should be evaluated for any possible cervical spine disease. I recommend obtaining an MRI of the brain and cervical spine with and without contrast. Continue conservative management and treat with steroids per the primary team with follow-up with rheumatology. Status: Acute Priority: Medium
[2017-04-10 08:37] LABS: BASO % 0.2 % (0.0-2.0); HEMATOCRIT 42.2 % (34.0-47.0); LYMPH % 14.3 % (20.0-40.0); MEAN CELL VOLUME 93.6 fL (81.0-99.0); MEAN CORPUSCULAR HEMOGLOBIN 31.2 pg (27.0-31.0); MEAN CORPUSCULAR HGB CONC 33.3 g/dL (33.0-37.0); MEAN PLATELET VOLUME 8.9 fL (7.2-11.7); MONO # 0.2 K/uL (0.0-0.8); MONO % 2.4 % (0.0-10.0); RED CELL DISTRIBUTION WIDTH 13.8 % (11.5-14.5); WHITE BLOOD COUNT 6.8 K/uL (4.8-10.8)
[2017-04-10 08:51] LABS: CHLORIDE 101 mmol/L (98-107); SODIUM 139 mmol/L (132-148)
[2017-04-10 08:52] LABS: POTASSIUM 3.9 mmol/L (3.6-5.2)
[2017-04-10 08:53] LABS: GFR AFRICAN-AMERICAN > 60
[2017-04-10 08:54] LABS: ALB/GLOB RATIO 1.3 (1.0-2.1); ALKALINE PHOSPHATASE 81 U/L (38-126); ALT/SGPT 32 U/L (9-52); AST/SGOT 27 U/L (14-36); BILIRUBIN,TOTAL 0.5 mg/dL (0.2-1.3); BLOOD UREA NITROGEN 18 mg/dL (7-17); CALCIUM 9.2 mg/dl (8.6-10.4); CARBON DIOXIDE 29 mmol/L (22-30); GLUCOSE,RANDOM 116 mg/dL (65-105); MAGNESIUM 1.8 mg/dL (1.6-2.3); PHOSPHOROUS 4.2 mg/dL (2.5-4.5); TOTAL PROTEIN 8.2 g/dL (6.3-8.3)
[2017-04-10] MEDS: Pantoprazole 40 mg EC Tab PO SCH (10:13)
[2017-04-10] MEDS: Enoxaparin 40 mg Syringe SC SCH (10:13)
--- NOTE | 2017-04-10 14:48 | CP.PCM.PN ---
<Abigail Mccann - Last Filed: 04/10/17 14:48> Subjective - Date & Time of Evaluation Date of Evaluation: 04/10/17 Time of Evaluation: 07:30 - Subjective Subjective: Medicine Progress Note: Patient was seen and examined at bed in the AM. Patient was sleeping comfortably in bed. Patient states her right arm and leg pain have improved it is currently a 6/10 today. Patient states she could open her right hand today better as opposed to yesterday she could barely open her hand without it causing her pain. Patient states she still has tenderness in her chest, neck on the right side and her right arm. Patient denies shortness of breath, palpitations, chest pain, nausea or vomiting. Patient states she is ambulating but is walking slowly because of her leg pain. Objective - Vital Signs/Intake and Output Vital Signs (last 24 hours): Temp Pulse Resp BP Pulse Ox 97.5 F L 86 20 198/75 H 97 04/10/17 07:59 04/10/17 12:00 04/10/17 07:59 04/10/17 07:59 04/10/17 07:59 Intake and Output: 04/10/17 04/10/17 06:59 18:59 Intake Total 400 Balance 400 - Medications Medications: Current Medications Acetaminophen (Tylenol 325mg Tab) 650 mg PO Q6 PRN PRN Reason: Pain, moderate (4-7) Diazepam (Valium) 5 mg PO Q6 PRN PRN Reason: Anxiety Last Admin: 04/09/17 08:51 Dose: 5 mg Enoxaparin Sodium (Lovenox) 40 mg SC DAILY [facility] Last Admin: 04/10/17 10:13 Dose: 40 mg Ketorolac Tromethamine (Toradol) 30 mg IVP Q6 PRN Last Admin: 04/10/17 10:10 Dose: 30 mg Pantoprazole Sodium (Protonix Ec Tab) 40 mg PO DAILY [facility] Last Admin: 04/10/17 10:13 Dose: 40 mg Prednisone (Prednisone Tab) 40 mg PO DAILY@1600 [facility] Last Admin: 04/09/17 19:14 Dose: 40 mg - Labs Labs: 04/10/17 08:19 04/10/17 08:21 PT 11.9 SECONDS (9.7-12.2) 04/08/17 17:52 INR 1.1 04/08/17 17:52 APTT 30 SECONDS (21-34) 04/08/17 17:52 - Constitutional Appears: No Acute Distress - Head Exam Head Exam: ATRAUMATIC, NORMAL INSPECTION, NORMOCEPHALIC - Eye Exam Eye Exam: EOMI, Normal appearance, PERRL Pupil Exam: NORMAL ACCOMODATION - ENT Exam ENT Exam: Mucous Membranes Moist - Respiratory Exam Respiratory Exam: Clear to Ausculation Bilateral, NORMAL BREATHING PATTERN. absent: Rales, Rhonchi, Wheezes - Cardiovascular Exam Cardiovascular Exam: REGULAR RHYTHM, RRR, +S1, +S2 Additional comments: Chest tenderness to palpation - GI/Abdominal Exam GI & Abdominal Exam: Soft, Normal Bowel Sounds. absent: Tenderness - Extremities Exam Extremities Exam: Tenderness (right leg tenderness; right arm tenderness) - Neurological Exam Neurological Exam: Alert, Awake, CN II-XII Intact, Oriented x3 Neuro motor strength exam: Left Upper Extremity: 5, Right Upper Extremity: 4, Left Lower Extremity: 5, Right Lower Extremity: 5 - Psychiatric Exam Psychiatric exam: Normal Affect, Normal Mood - Skin Skin Exam: Normal Color, Warm Assessment and Plan - Assessment and Plan (Free Text) Plan: 1.) Chest Pain secondary Costochondritis - Chest CTA PULMONARY ARTERIES: Contrast opacification of the pulmonary arteries is suboptimal. There is no evidence of pulmonary embolism involving the large/central pulmonary arteries. The exam is nondiagnostic for emboli in the smaller pulmonary artery branches, however, due to suboptimal IV contrast opacification. AORTA: No evidence of aortic dissection. LUNGS: Incidental 6 x 4 mm noncalcified pulmonary nodule in the right lung, image 59/series 3. Additional 3 mm noncalcified nodule in the right lung, image 59/series 3. In low-risk patients (minimal or absent history of smoking or other known risk factors), no follow-up is necessary. For high-risk patients (history of smoking or other known risk factors), an optional chest CT at 12 months could be performed. Patchy groundglass densities in the posterior aspects of the lungs bilaterally, with an appearance and location most suggestive of dependent atelectasis. No definite focal consolidation/ infiltrate is seen in the lungs. No evidence of diffuse pulmonary vascular congestion. - EKG - Sinus Bradycardia @57bpm, normal axis, otherwise normal ekg - Troponin - <0.012 - D-dimer - 294 - BNP - 79.1 - VQ scan: Low probability ventilation perfusion scan for PE 2.) Bilateral upper and lower Extremity Weakness and Pain secondary to disk herniation vs. auto-immune Neurology Consult: Dr. Carmona --> help appreciated - MRI of cervical spine - patient refused because she states she is claustrophobic - X-ray of bilateral shoulder: Prominent bony spurring at the bilateral greater tuberosities of the proximal humeri. If pain persists, consider MRI. - Spoke with Dr. Carmona yesterday and asked to order: - f/u CTA of head and neck - f/u Head CT with and w/o contrast - Venous Duplex scan: Right and Left lower extremity showed no abnormal findings - f/u Lyme titers, MOISÉS - TSH 3.35 (within normal range) - Prednisone 40 mg PO (started 04/09/17) - Valium 5 mg PO Q6H PRN - Discussed with patient to follow up with Rhematologist Dr. Robert Walker when discharged 3.) Prophylactic Care - Lovenox 40mg SC daily - Protonix 40mg PO daily - Physical Therapy/Occupational Therapy Case Discussed with Dr. Chandler Mccann PGY-1 <Chirag Arteaga - Last Filed: 04/10/17 16:09> Objective - Vital Signs/Intake and Output Vital Signs (last 24 hours): Temp Pulse Resp BP Pulse Ox 97.9 F 62 20 130/80 97 04/10/17 15:56 04/10/17 15:56 04/10/17 15:56 04/10/17 15:56 04/10/17 15:56 Intake and Output: 04/10/17 04/10/17 06:59 18:59 Intake Total 400 Balance 400 - Medications Medications: Current Medications Acetaminophen (Tylenol 325mg Tab) 650 mg PO Q6 PRN PRN Reason: Pain, moderate (4-7) Diazepam (Valium) 5 mg PO Q6 PRN PRN Reason: Anxiety Last Admin: 04/09/17 08:51 Dose: 5 mg Enoxaparin Sodium (Lovenox) 40 mg SC DAILY [facility] Last Admin: 04/10/17 10:13 Dose: 40 mg Ketorolac Tromethamine (Toradol) 30 mg IVP Q6 PRN Last Admin: 04/10/17 10:10 Dose: 30 mg Pantoprazole Sodium (Protonix Ec Tab) 40 mg PO DAILY [facility] Last Admin: 04/10/17 10:13 Dose: 40 mg Prednisone (Prednisone Tab) 40 mg PO DAILY@1600 [facility] Last Admin: 04/10/17 15:50 Dose: 40 mg - Labs Labs: 04/10/17 08:19 04/10/17 08:21 PT 11.9 SECONDS (9.7-12.2) 04/08/17 17:52 INR 1.1 04/08/17 17:52 APTT 30 SECONDS (21-34) 04/08/17 17:52 Attending/Attestation - Attestation I have personally seen and examined this patient.: Yes I have fully participated in the care of the patient.: Yes I have reviewed all pertinent clinical information, including history, physical exam and plan: Yes Notes (Text): 04/10/17 16:07 Patient was seen and examined at bedside with the resident Patient states that right arm mobility has improved Pain has improved. Neurology consultation seen in appreciated Follow-up results of the CAT scan and the CT angiogram of the head and neck Continue treatment with steroids Patient will need outpatient follow-up with rheumatology. I discussed the plan of care with the resident and agree with the history and physical and assessment/plan documented
--- NOTE | 2017-04-10 15:28 | VASCLAB ---
PROCEDURE: Lower Extremity Venous Duplex Exam. HISTORY: Elevated d-dimer, lower extremity pain PRIORS: None. TECHNIQUE: Bilateral common femoral, femoral, popliteal and posterior tibial, peroneal and great saphenous veins were evaluated. Flow was assessed with color Doppler, compressibility, assessment of phasic flow and augmentation response. Report prepared by JILLIAN Alexander FINDINGS: RIGHT: 1. Common Femoral Vein: 1.1. Compressibility - Fully compressible: Thrombus - None : Flow - Phasic: Augmentation -Normal: Reflux - None. 2. Femoral Vein: 2.1. Compressibility - Fully compressible: Thrombus - None : Flow - Phasic: Augmentation -Normal: Reflux - None. 3. Popliteal Vein: 3.1. Compressibility - Fully compressible: Thrombus - None : Flow - Phasic: Augmentation -Normal: Reflux - None. 4. Posterior Tibial Vein: 4.1. Compressibility - Fully compressible: Thrombus - None: Flow - Phasic: Augmentation -Normal: Reflux - None. 5. Peroneal Vein: 5.1. Compressibility - Fully compressible: Thrombus - None: Flow - Phasic: Augmentation -Normal: Reflux - None. 6. Great Saphenous Vein: 6.1. Compressibility - Fully compressible: Thrombus - None: Flow - Phasic: Augmentation - Normal: Reflux - None. LEFT: 1. Common Femoral Vein: 1.1. Compressibility - Fully compressible: Thrombus - None: Flow - Phasic: Augmentation -Normal: Reflux - None. 2. Femoral Vein: 2.1. Compressibility - Fully compressible: Thrombus - None: Flow - Phasic: Augmentation -Normal: Reflux - None. 3. Popliteal Vein: 3.1. Compressibility - Fully compressible: Thrombus - None : Flow - Phasic: Augmentation -Normal: Reflux - None. 4. Posterior Tibial Vein: 4.1. Compressibility - Fully compressible: Thrombus - None: Flow - Phasic: Augmentation -Normal: Reflux - None. 5. Peroneal Vein: 5.1. Compressibility - Fully compressible: Thrombus - None: Flow - Phasic: Augmentation -Normal: Reflux - None. 6. Great Saphenous Vein: 6.1. Compressibility - Fully compressible: Thrombus - None: Flow - Phasic: Augmentation - Normal: Reflux - None. OTHER FINDINGS: Right: None significant. Left: None significant. IMPRESSION: Right: No evidence of deep or superficial vein thrombosis of the right lower extremity. Normal valve function noted of the right side. Left: No evidence of deep or superficial vein thrombosis of the left lower extremity. Normal valve function noted of the left side.
[2017-04-10 17:10] LABS: LYME IGM NEGATIVE (NEGATIVE)
[2017-04-10 17:14] LABS: LYME IGG NEGATIVE (NEGATIVE)
[2017-04-10] MEDS ORDERED: Iodixanol 320 MG/ML 100 ML BOTTLE IV ONE (20:30)
--- NOTE | 2017-04-10 22:11 | CT ---
EXAM: CT Angiography Head With Intravenous Contrast CLINICAL HISTORY: 52 years old, female; Signs and symptoms; Weakness; Additional info: Right extremity weakness TECHNIQUE: Axial computed tomographic angiography images of the head with intravenous contrast using CT angiography protocol. All CT scans at this facility use one or more dose reduction techniques, viz.: automated exposure control; ma/kV adjustment per patient size (including targeted exams where dose is matched to indication; i.e. head); or iterative reconstruction technique. MIP reconstructed images were created and reviewed. Coronal and sagittal reformatted images were created and reviewed. CONTRAST: 100 mL of VISIPAQUE 320 administered intravenously. COMPARISON: No relevant prior studies available. FINDINGS: Right internal carotid artery: No acute findings. Intracranial segment is patent with no significant stenosis. No aneurysm. Right anterior cerebral artery: Unremarkable. No occlusion or significant stenosis. No aneurysm. Right middle cerebral artery: Unremarkable. No occlusion or significant stenosis. No aneurysm. Right posterior cerebral artery: Unremarkable. No occlusion or significant stenosis. No aneurysm. Right vertebral artery: Unremarkable as visualized. Left internal carotid artery: No acute findings. Intracranial segment is patent with no significant stenosis. No aneurysm. Left anterior cerebral artery: Unremarkable. No occlusion or significant stenosis. No aneurysm. Left middle cerebral artery: Unremarkable. No occlusion or significant stenosis. No aneurysm. Left posterior cerebral artery: Unremarkable. No occlusion or significant stenosis. No aneurysm. Left vertebral artery: Unremarkable as visualized. Basilar artery: Unremarkable. No occlusion or significant stenosis. No aneurysm. IMPRESSION: Normal intracranial arteries. EXAM: CT Angiography Neck With Intravenous Contrast CLINICAL HISTORY: 52 years old, female; Signs and symptoms; Weakness; Additional info: Right extremity weakness TECHNIQUE: Axial computed tomographic angiography images of the neck with intravenous contrast using CT angiography protocol. All CT scans at this facility use one or more dose reduction techniques, viz.: automated exposure control; ma/kV adjustment per patient size (including targeted exams where dose is matched to indication; i.e. head); or iterative reconstruction technique. MIP reconstructed images were created and reviewed. Coronal and sagittal reformatted images were created and reviewed. CONTRAST: 100 mL of VISIPAQUE 320 administered intravenously. COMPARISON: No relevant prior studies available. FINDINGS: VASCULATURE: Right common carotid artery: Unremarkable. No significant stenosis. No dissection or occlusion. Right internal carotid artery: Unremarkable. Extracranial segment is patent with no significant stenosis. No dissection or occlusion. Right external carotid artery: Unremarkable. No occlusion. Right vertebral artery: Unremarkable. No significant stenosis. No dissection or occlusion. Left common carotid artery: Unremarkable. No significant stenosis. No dissection or occlusion. Left internal carotid artery: Unremarkable. Extracranial segment is patent with no significant stenosis. No dissection or occlusion. Left external carotid artery: Unremarkable. No occlusion. Left vertebral artery: Unremarkable. No significant stenosis. No dissection or occlusion. NECK: Bones/joints: No acute fracture. Diffuse spinal degenerative changes. No dislocation. Soft tissues: Unremarkable as visualized. No mass. CAROTID STENOSIS REFERENCE USING NASCET CRITERIA: % ICA stenosis = (1 - narrowest ICA diameter/diameter of distal cervical ICA) x 100. Mild - <50% stenosis. Moderate - 50-69% stenosis. Severe - 70-94% stenosis. Near occlusion - 95-99% stenosis. Occluded - 100% stenosis. IMPRESSION: Normal cervical carotid and vertebral arteries.
--- NOTE | 2017-04-10 22:12 | CT ---
EXAM: CT Head Without and With Intravenous Contrast CLINICAL HISTORY: 52 years old, female; Signs and symptoms; Weakness, extremity; Right; Additional info: Right extremity weakness TECHNIQUE: Axial computed tomography images of the head/brain without and with intravenous contrast. All CT scans at this facility use one or more dose reduction techniques, viz.: automated exposure control; ma/kV adjustment per patient size (including targeted exams where dose is matched to indication; i.e. head); or iterative reconstruction technique. CONTRAST: 100 mL of VISIPAQUE 320 administered intravenously. COMPARISON: No relevant prior studies available. FINDINGS: Brain: Unremarkable. No hemorrhage. No significant white matter disease. No edema. Normal enhancement. Ventricles: Unremarkable. No ventriculomegaly. Bones/joints: Unremarkable. No acute fracture. Soft tissues: Unremarkable. Sinuses: Unremarkable as visualized. No acute sinusitis. Mastoid air cells: Unremarkable as visualized. No mastoid effusion. IMPRESSION: No acute intracranial abnormality.
[2017-04-11 00:17] VITALS: RESP 18
--- NOTE | 2017-04-11 06:29 | CP.PCM.PN ---
Objective - Vital Signs/Intake and Output Vital Signs (last 24 hours): Temp Pulse Resp BP Pulse Ox 97.4 F L 66 18 166/71 H 98 04/11/17 03:22 04/11/17 03:58 04/11/17 00:00 04/11/17 03:08 04/11/17 00:00 Intake and Output: 04/10/17 04/11/17 18:59 06:59 Intake Total 500 Balance 500 - Medications Medications: Current Medications Acetaminophen (Tylenol 325mg Tab) 650 mg PO Q6 PRN PRN Reason: Pain, moderate (4-7) Last Admin: 04/11/17 03:22 Dose: 650 mg Diazepam (Valium) 5 mg PO Q6 PRN PRN Reason: Anxiety Last Admin: 04/11/17 03:06 Dose: 5 mg Enoxaparin Sodium (Lovenox) 40 mg SC DAILY [facility] Last Admin: 04/10/17 10:13 Dose: 40 mg Ketorolac Tromethamine (Toradol) 30 mg IVP Q6 PRN Last Admin: 04/11/17 00:04 Dose: 30 mg Pantoprazole Sodium (Protonix Ec Tab) 40 mg PO DAILY [facility] Last Admin: 04/10/17 10:13 Dose: 40 mg Prednisone (Prednisone Tab) 40 mg PO DAILY@1600 [facility] Last Admin: 04/10/17 15:50 Dose: 40 mg - Labs Labs: 04/10/17 08:19 04/10/17 08:21 PT 11.9 SECONDS (9.7-12.2) 04/08/17 17:52 INR 1.1 04/08/17 17:52 APTT 30 SECONDS (21-34) 04/08/17 17:52
[2017-04-11 07:53] LABS: BASO % 0.2 % (0.0-2.0); EOS % 0.1 % (0.0-4.0); HEMATOCRIT 38.1 % (34.0-47.0); LYMPH # 2.5 K/uL (1.0-4.3); LYMPH % 29.4 % (20.0-40.0); MEAN CELL VOLUME 92.5 fL (81.0-99.0); MEAN CORPUSCULAR HEMOGLOBIN 31.5 pg (27.0-31.0); MEAN PLATELET VOLUME 9.1 fL (7.2-11.7); MONO # 0.5 K/uL (0.0-0.8); MONO % 6.2 % (0.0-10.0); RED CELL DISTRIBUTION WIDTH 13.8 % (11.5-14.5); WHITE BLOOD COUNT 8.6 K/uL (4.8-10.8)
[2017-04-11 08:13] LABS: CHLORIDE 106 mmol/L (98-107); POTASSIUM 3.5 mmol/L (3.6-5.2); SODIUM 141 mmol/L (132-148)
[2017-04-11 08:15] LABS: GFR AFRICAN-AMERICAN > 60
[2017-04-11 08:16] LABS: ALB/GLOB RATIO 1.2 (1.0-2.1); ALKALINE PHOSPHATASE 67 U/L (38-126); ALT/SGPT 32 U/L (9-52); AST/SGOT 29 U/L (14-36); BILIRUBIN,TOTAL 0.4 mg/dL (0.2-1.3); BLOOD UREA NITROGEN 17 mg/dL (7-17); CARBON DIOXIDE 22 mmol/L (22-30); GLUCOSE,RANDOM 119 mg/dL (65-105); PHOSPHOROUS 3.4 mg/dL (2.5-4.5); TOTAL PROTEIN 7.3 g/dL (6.3-8.3)
[2017-04-11 08:17] LABS: CALCIUM 8.5 mg/dl (8.6-10.4); MAGNESIUM 1.7 mg/dL (1.6-2.3)
[2017-04-11 08:54] VITALS: BP 156/78; PULSE 64; TEMP 97.6; O2SAT 99
[2017-04-11] MEDS: Enoxaparin 40 mg Syringe SC SCH (10:14)
[2017-04-11] MEDS: Pantoprazole 40 mg EC Tab PO SCH (10:15)
--- NOTE | 2017-04-11 11:54 | CP.PCM.DIS ---
<Abigail Mccann - Last Filed: 04/11/17 18:17> Provider - Provider Date of Admission: 04/08/17 22:30 Attending physician: Anthony Cano MD Time Spent in preparation of Discharge (in minutes): 40 Hospital Course - Lab Results Lab Results: Micro Results 04/09/17 Unknown Nose MRSA Culture (Admit) - Final MRSA NOT DETECTED Most Recent Lab Values WBC 8.6 K/uL (4.8-10.8) 04/11/17 07:35 RBC 4.12 Mil/uL (3.80-5.20) 04/11/17 07:35 Hgb 13.0 g/dL (11.0-16.0) 04/11/17 07:35 Hct 38.1 % (34.0-47.0) 04/11/17 07:35 MCV 92.5 fL (81.0-99.0) 04/11/17 07:35 MCH 31.5 pg (27.0-31.0) H 04/11/17 07:35 MCHC 34.0 g/dL (33.0-37.0) 04/11/17 07:35 RDW 13.8 % (11.5-14.5) 04/11/17 07:35 Plt Count 255 K/uL (130-400) 04/11/17 07:35 MPV 9.1 fL (7.2-11.7) 04/11/17 07:35 Neut % (Auto) 64.1 % (50.0-75.0) 04/11/17 07:35 Lymph % (Auto) 29.4 % (20.0-40.0) 04/11/17 07:35 Story % (Auto) 6.2 % (0.0-10.0) 04/11/17 07:35 Eos % (Auto) 0.1 % (0.0-4.0) 04/11/17 07:35 Baso % (Auto) 0.2 % (0.0-2.0) 04/11/17 07:35 Neut # 5.5 K/uL (1.8-7.0) 04/11/17 07:35 Lymph # 2.5 K/uL (1.0-4.3) 04/11/17 07:35 Story # 0.5 K/uL (0.0-0.8) 04/11/17 07:35 Eos # 0.0 K/uL (0.0-0.7) 04/11/17 07:35 Baso # 0.0 K/uL (0.0-0.2) 04/11/17 07:35 ESR 30 mm/hr (0-20) H 04/09/17 09:03 PT 11.9 SECONDS (9.7-12.2) 04/08/17 17:52 INR 1.1 04/08/17 17:52 APTT 30 SECONDS (21-34) 04/08/17 17:52 D-Dimer, Quantitative 294 ng/mlDDU (0-243) H 04/08/17 17:52 Sodium 141 mmol/L (132-148) 04/11/17 07:35 Potassium 3.5 mmol/L (3.6-5.2) L 04/11/17 07:35 Chloride 106 mmol/L (98-107) 04/11/17 07:35 Carbon Dioxide 22 mmol/L (22-30) 04/11/17 07:35 Anion Gap 17 (10-20) 04/11/17 07:35 BUN 17 mg/dL (7-17) 04/11/17 07:35 Creatinine 0.7 MG/DL (0.7-1.2) 04/11/17 07:35 Est GFR ( Amer) > 60 04/11/17 07:35 Est GFR (Non-Af Amer) > 60 04/11/17 07:35 Random Glucose 119 mg/dL (65-105) H 04/11/17 07:35 Calcium 8.5 mg/dl (8.6-10.4) L 04/11/17 07:35 Phosphorus 3.4 mg/dL (2.5-4.5) 04/11/17 07:35 Magnesium 1.7 mg/dL (1.6-2.3) 04/11/17 07:35 Total Bilirubin 0.4 mg/dL (0.2-1.3) 04/11/17 07:35 AST 29 U/L (14-36) 04/11/17 07:35 ALT 32 U/L (9-52) 04/11/17 07:35 Alkaline Phosphatase 67 U/L (38-126) 04/11/17 07:35 Lactate Dehydrogenase 494 U/L (313-618) 04/09/17 09:03 Total Creatine Kinase 95 U/L (30-135) 04/09/17 09:03 Troponin I < 0.0120 ng/mL (0.00-0.120) 04/08/17 17:52 NT-Pro-B Natriuret Pep 79.1 pg/mL (0-900) 04/08/17 17:52 Total Protein 7.3 g/dL (6.3-8.3) 04/11/17 07:35 Albumin 4.0 g/dL (3.5-5.0) 04/11/17 07:35 Globulin 3.2 gm/dL (2.2-3.9) 04/11/17 07:35 Albumin/Globulin Ratio 1.2 (1.0-2.1) 04/11/17 07:35 Lipase 127 U/L (23-300) 04/08/17 17:52 TSH 3rd Generation 3.35 mIU/L (0.46-4.68) 04/10/17 08:19 Urine Color Yellow (YELLOW) 04/08/17 19:53 Urine Clarity Clear (Clear) 04/08/17 19:53 Urine pH 6.0 (5.0-8.0) 04/08/17 19:53 Ur Specific [place] 1.059 (1.003-1.030) H 04/08/17 19:53 Urine Protein Negative mg/dL (NEGATIVE) 04/08/17 19:53 Urine Glucose (UA) Normal mg/dL (Normal) 04/08/17 19:53 Urine Ketones Negative mg/dL (NEGATIVE) 04/08/17 19:53 Urine Blood Negative (NEGATIVE) 04/08/17 19:53 Urine Nitrate Negative (NEGATIVE) 04/08/17 19:53 Urine Bilirubin Negative (NEGATIVE) 04/08/17 19:53 Urine Urobilinogen Normal mg/dL (0.2-1.0) 04/08/17 19:53 Ur Leukocyte Esterase Trace Opal/uL (Negative) 04/08/17 19:53 Urine WBC (Auto) 4 /hpf (0-5) 04/08/17 19:53 Urine RBC (Auto) 1 /hpf (0-3) 04/08/17 19:53 Ur Squamous Epith Cells 1 /hpf (0-5) 04/08/17 19:53 Urine Bacteria Occ (<OCC) H 04/08/17 19:53 Urine HCG, Qual Negative (NEGATIVE) 04/08/17 19:53 Rheum Arthritis Panel Negative (NEGATIVE) 04/09/17 09:03 MOISÉS 6 Profile Negative (NEGATIVE) 04/10/17 08:19 Lyme Disease IgG Ab (IFA) Negative (NEGATIVE) 04/10/17 08:19 Lyme Disease IgM Ab Negative (NEGATIVE) 04/10/17 08:19 - Hospital Course Hospital Course: PGY1 Medicine Note for Dr. Cano 52 year old female with a PMH of asthma presents to the ED with a 3 day history of SOB, CP and UE/LE weakness b/l. The patient states that she started noticing pain in her neck a 3 days ago. She states that she did not have any trauma, did not sleep on it wrong and just began to notice the pain while at work. 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 Along with the pain in her neck, she began noticing pain in her UEs and LEs b/l. This pain is sharp, worse with movement and palpation. The patient states she has difficulty moving her joints due to the pain. The patient reports swelling b/l LE edema since the onset of cp and sob 3 days ago. She elevated her legs and the swelling has since resolved. The patient has attempted to take use her inhaler but it has not improved her sob. Patient denies ever having these symptoms previously. Patient denies fevers, chills, n/v, d/c PMH: Asthma PSH: Appendectomy Social: Current smoker, occasionally alcohol, denies illicit drug use. Allergies: NKDA Hospital Course: 04/08/17: Patient is a Telugu speaking female who arrived to the ED complaining of chest pain, shortness of breath, right body pain, and bilateral swelling of legs. Chest x-ray performed in the emergency room and showed mild venous congestion and no other abnormalities. EKG performed and showed bradycardia and no other abnormalities. Chest CT performed and showed no evidence of acute process. Troponin 1 <0.0120 04/09/17: Patient admitted for further workup. Patient reports extreme pain in b/ l Upper Extremities and b/l leg extremities. LE Duplex Scan showed no abnormalities. Lung V/Q scan performed and showed low probability of PE. Shoulder X ray performed and showed bony spurring at b/l greater tuberosity of proximal humeri. Dr. Carmona consulted for neurological symptoms and requested Head CT and Head and Neck CTA. 04/10/17: Head CT performed and showed no acute abnormalities. Head and Neck CTA performed and showed normal cervical, carotid, and vertebral arteries. PT and OT consulted to evaluate and work with patient. 04/11/17: patients pain has improved and will be discharged on 400mg Motrin BID for 10 days. Patient reports that she recently lost her apartment and has been staying with her cousin and upon discharge she will have nowhere to go. Social Work consulted and has given patient information for shelters in the area. Patient is stable for discharge per Dr. Arteaga. Patient is to start new medication for 5 days: Motrin 400mg twice a day by mouth Patient to follow up with the [facility] at [facility] in [place]: Patient to call and make an appointment in 1 week: # Patient to follow up with Rhematologist Dr. Robert Walker in 1-2 weeks: [phone] Patient to return to the emergency room if symptoms return or worsen. This is a brief summary of events. For a complete course, refer to the medical record. Discharge Exam - Head Exam Head Exam: ATRAUMATIC, NORMAL INSPECTION, NORMOCEPHALIC - Eye Exam Eye Exam: EOMI, Normal appearance, PERRL Pupil Exam: NORMAL ACCOMODATION - ENT Exam ENT Exam: Mucous Membranes Moist - Respiratory Exam Respiratory Exam: Clear to PA & Lateral, NORMAL BREATHING PATTERN - Cardiovascular Exam Cardiovascular Exam: REGULAR RHYTHM, RRR, +S1, +S2. absent: JVD - GI/Abdominal Exam GI & Abdominal Exam: Normal Bowel Sounds, Soft. absent: Tenderness - Extremities Exam Extremities exam: tenderness (right upper extemity tenderness ), pedal pulses present - Neurological Exam Neurological exam: Alert, Oriented x3 - Psychiatric Exam Psychiatric exam: Anxious, Normal Affect, Normal Mood - Skin Skin Exam: Normal Color, Warm Discharge Plan - Discharge Medications Prescriptions: Ibuprofen [Motrin Tab] 400 mg PO BID #10 tab - Follow Up Plan Condition: STABLE Disposition: HOME/ ROUTINE Instructions: Ibuprofen (By mouth), Chest Pain (DC), Chest Pain (GEN), Weakness (GEN) Additional Instructions: Patient is stable for discharge per Dr. Arteaga. Patient is to start new medication for 5 days: Motrin 400mg twice a day by mouth Patient to follow up with the [facility] [place]: Patient to call and make an appointment in 1 week: # Patient to follow up with Rhematologist Dr. Robert Walker in 1-2 weeks: [phone] Patient to return to the emergency room if symptoms return or worsen. Referrals: [facility] [Outside] Robert Walker MD [Staff Provider] - 1 Week Umair Carmona MD [Staff Provider] - <Chirag Arteaga - Last Filed: 04/11/17 18:36> Provider - Provider Date of Admission: 04/08/17 22:30 Attending physician: Anthony Cano MD Hospital Course - Lab Results Lab Results: Micro Results 04/09/17 Unknown Nose MRSA Culture (Admit) - Final MRSA NOT DETECTED Most Recent Lab Values WBC 8.6 K/uL (4.8-10.8) 04/11/17 07:35 RBC 4.12 Mil/uL (3.80-5.20) 04/11/17 07:35 Hgb 13.0 g/dL (11.0-16.0) 04/11/17 07:35 Hct 38.1 % (34.0-47.0) 04/11/17 07:35 MCV 92.5 fL (81.0-99.0) 04/11/17 07:35 MCH 31.5 pg (27.0-31.0) H 04/11/17 07:35 MCHC 34.0 g/dL (33.0-37.0) 04/11/17 07:35 RDW 13.8 % (11.5-14.5) 04/11/17 07:35 Plt Count 255 K/uL (130-400) 04/11/17 07:35 MPV 9.1 fL (7.2-11.7) 04/11/17 07:35 Neut % (Auto) 64.1 % (50.0-75.0) 04/11/17 07:35 Lymph % (Auto) 29.4 % (20.0-40.0) 04/11/17 07:35 Story % (Auto) 6.2 % (0.0-10.0) 04/11/17 07:35 Eos % (Auto) 0.1 % (0.0-4.0) 04/11/17 07:35 Baso % (Auto) 0.2 % (0.0-2.0) 04/11/17 07:35 Neut # 5.5 K/uL (1.8-7.0) 04/11/17 07:35 Lymph # 2.5 K/uL (1.0-4.3) 04/11/17 07:35 Story # 0.5 K/uL (0.0-0.8) 04/11/17 07:35 Eos # 0.0 K/uL (0.0-0.7) 04/11/17 07:35 Baso # 0.0 K/uL (0.0-0.2) 04/11/17 07:35 ESR 30 mm/hr (0-20) H 04/09/17 09:03 PT 11.9 SECONDS (9.7-12.2) 04/08/17 17:52 INR 1.1 04/08/17 17:52 APTT 30 SECONDS (21-34) 04/08/17 17:52 D-Dimer, Quantitative 294 ng/mlDDU (0-243) H 04/08/17 17:52 Sodium 141 mmol/L (132-148) 04/11/17 07:35 Potassium 3.5 mmol/L (3.6-5.2) L 04/11/17 07:35 Chloride 106 mmol/L (98-107) 04/11/17 07:35 Carbon Dioxide 22 mmol/L (22-30) 04/11/17 07:35 Anion Gap 17 (10-20) 04/11/17 07:35 BUN 17 mg/dL (7-17) 04/11/17 07:35 Creatinine 0.7 MG/DL (0.7-1.2) 04/11/17 07:35 Est GFR ( Amer) > 60 04/11/17 07:35 Est GFR (Non-Af Amer) > 60 04/11/17 07:35 Random Glucose 119 mg/dL (65-105) H 04/11/17 07:35 Calcium 8.5 mg/dl (8.6-10.4) L 04/11/17 07:35 Phosphorus 3.4 mg/dL (2.5-4.5) 04/11/17 07:35 Magnesium 1.7 mg/dL (1.6-2.3) 04/11/17 07:35 Total Bilirubin 0.4 mg/dL (0.2-1.3) 04/11/17 07:35 AST 29 U/L (14-36) 04/11/17 07:35 ALT 32 U/L (9-52) 04/11/17 07:35 Alkaline Phosphatase 67 U/L (38-126) 04/11/17 07:35 Lactate Dehydrogenase 494 U/L (313-618) 04/09/17 09:03 Total Creatine Kinase 95 U/L (30-135) 04/09/17 09:03 Troponin I < 0.0120 ng/mL (0.00-0.120) 04/08/17 17:52 NT-Pro-B Natriuret Pep 79.1 pg/mL (0-900) 04/08/17 17:52 Total Protein 7.3 g/dL (6.3-8.3) 04/11/17 07:35 Albumin 4.0 g/dL (3.5-5.0) 04/11/17 07:35 Globulin 3.2 gm/dL (2.2-3.9) 04/11/17 07:35 Albumin/Globulin Ratio 1.2 (1.0-2.1) 04/11/17 07:35 Lipase 127 U/L (23-300) 04/08/17 17:52 TSH 3rd Generation 3.35 mIU/L (0.46-4.68) 04/10/17 08:19 Urine Color Yellow (YELLOW) 04/08/17 19:53 Urine Clarity Clear (Clear) 04/08/17 19:53 Urine pH 6.0 (5.0-8.0) 04/08/17 19:53 Ur Specific [place] 1.059 (1.003-1.030) H 04/08/17 19:53 Urine Protein Negative mg/dL (NEGATIVE) 04/08/17 19:53 Urine Glucose (UA) Normal mg/dL (Normal) 04/08/17 19:53 Urine Ketones Negative mg/dL (NEGATIVE) 04/08/17 19:53 Urine Blood Negative (NEGATIVE) 04/08/17 19:53 Urine Nitrate Negative (NEGATIVE) 04/08/17 19:53 Urine Bilirubin Negative (NEGATIVE) 04/08/17 19:53 Urine Urobilinogen Normal mg/dL (0.2-1.0) 04/08/17 19:53 Ur Leukocyte Esterase Trace Opal/uL (Negative) 04/08/17 19:53 Urine WBC (Auto) 4 /hpf (0-5) 04/08/17 19:53 Urine RBC (Auto) 1 /hpf (0-3) 04/08/17 19:53 Ur Squamous Epith Cells 1 /hpf (0-5) 04/08/17 19:53 Urine Bacteria Occ (<OCC) H 04/08/17 19:53 Urine HCG, Qual Negative (NEGATIVE) 04/08/17 19:53 Rheum Arthritis Panel Negative (NEGATIVE) 04/09/17 09:03 MOISÉS 6 Profile Negative (NEGATIVE) 04/10/17 08:19 Lyme Disease IgG Ab (IFA) Negative (NEGATIVE) 04/10/17 08:19 Lyme Disease IgM Ab Negative (NEGATIVE) 04/10/17 08:19 Attending/Attestation - Attestation I have personally seen and examined this patient.: Yes I have fully participated in the care of the patient.: Yes I have reviewed all pertinent clinical information, including history, physical exam and plan: Yes Notes (Text): 04/11/17 18:35 Patient was seen and examined at bedside today Patient still complains of some pain in the right side of the chest and the arm but it is improved significantly since admission We will discharge the patient on oral NSAIDs Patient will follow-up with the clinic at [facility] and she may be referred to rheumatology for further evaluation I discussed the plan of care with the resident and agree with the discharge note by the resident.
== END 2017-04-11 15:15 | disposition home or self-care (01) | DRG 206 ==
LOC: C.ER 16:06 → C.9E 22:06 → OBSVTOIN 22:30 → C.9I 22:50 → C.5S 04-09 12:16
PROVIDERS: ADMIT Internal Medicine; ATTEND Internal Medicine
DX: M94.0 Chondrocostal junction syndrome [Tietze] (principal); J44.9 Chronic obstructive pulmonary disease, unspecified; M54.2 Cervicalgia; F17.200 Nicotine dependence, unspecified, uncomplicated

== ENCOUNTER 2017-07-13 10:34 | Emergency (ER) | payer OTHER ==
[2017-07-13 10:40] VITALS: BP 154/81; PULSE 78; RESP 20; TEMP 98.1; O2SAT 100
[2017-07-13 11:42] LABS: RBC URINE < 1 /hpf (0-3); URINE BACTERIA RARE (<OCC); URINE BILIRUBIN NEGATIVE (NEGATIVE); URINE BLOOD NEGATIVE (NEGATIVE); URINE COLOR Yellow (YELLOW); URINE GLUCOSE (UA) NORMAL (Normal); URINE KETONE NEGATIVE (NEGATIVE); URINE LEUKOCYTE ESTERASE NEG Leu/uL (Negative); URINE PROTEIN NEGATIVE (NEGATIVE); URINE UROBILINOGEN NORMAL mg/dL (0.2-1.0); WBC URINE 1 /hpf (0-5)
--- NOTE | 2017-07-13 11:50 | C.PDOC ---
History Of Present Illness 52 yo female come in with multiple complaints" Right middle finger pain since today AM, Left flank pain for past few days and sore throat for 3-4 days. Pt reports, " woke up with my Rihgt middle finger bended was unable to move it due to pain. WIth time, its slowly improved". AT present time, no obvious deformity , weakness, sensory or vascular deficits to Right hand. Pt describes Left flank as localized, worse with movement. Denies known trauma or injury, UTI sx, saddle anesthesia, incontinence, denies weakness to B/L LEs. Also admits, cold sx associated with sore throat , dry cough. Otherwise, denies high fever, chills , headache, dizziness, neck pain, drooling, dysphagia, dyspnea, SOB, wheezing, abd. pain, N/V/D. Ambulate to ED for evaluation, not in nay apparent distress. Time Seen by Provider: 07/13/17 11:12 Chief Complaint (Nursing): Back Pain History Per: Patient Past Medical History Reviewed: Historical Data, Nursing Documentation, Vital Signs Vital Signs: Last Vital Signs Temp 98.1 F 07/13/17 10:38 Pulse 78 07/13/17 10:38 Resp 20 07/13/17 10:38 BP 154/81 H 07/13/17 10:38 Pulse Ox 100 07/13/17 10:38 - Medical History PMH: Asthma Denies: Chronic Kidney Disease Surgical History: Appendectomy - [facility] IRRIGATION OF EAR (02/23/15) OTHER SKIN & SUBQ I D (01/26/14) Family History: States: No Known Family Hx - Social History Hx Tobacco Use: Yes Hx Alcohol Use: No Hx Substance Use: No - Immunization History Hx Tetanus Toxoid Vaccination: No Hx Influenza Vaccination: No Hx Pneumococcal Vaccination: No Review Of Systems Except As Marked, All Systems Reviewed And Found Negative. Constitutional: Negative for: Fever, Chills ENT: Positive for: Nose Discharge, Nose Congestion, Throat Pain, Throat Swelling. Negative for: Ear Discharge Cardiovascular: Negative for: Chest Pain Respiratory: Positive for: Cough. Negative for: Shortness of Breath, Wheezing Gastrointestinal: Negative for: Nausea, Vomiting, Abdominal Pain Genitourinary: Negative for: Dysuria, Frequency, Incontinence Musculoskeletal: Positive for: Hand Pain, Other (Left flank pain) Skin: Negative for: Rash Neurological: Negative for: Weakness, Numbness, Altered Mental Status, Dizziness Physical Exam - Physical Exam Appears: Well, Non-toxic, No Acute Distress Skin: Normal Color, Warm, Dry, No Rash Head: Normacephalic Eye(s): bilateral: PERRL Ear(s): Bilateral: Normal Nose: No Flaring, No Discharge Oral Mucosa: Moist, No Drooling Lips: Normal Appearing Throat: Erythema (mod B/L), No Exudate, No Drooling Neck: Trachea Midline, Supple, Other ((-) meningeal sign) Cardiovascular: Rhythm Regular Respiratory: No Decreased Breath Sounds, No Accessory Muscle Use, No Stridor, No Wheezing Gastrointestinal/Abdominal: Soft, No Tenderness, No Distention, No Guarding Back: No CVA Tenderness, Other (Left flank tenderness) Extremity: Normal ROM (Right hand), Tenderness (mild tenderness over Right middle finger overlying DIPJ with mild discomfort on active movemnet. Tenderness extends along palmar aspect middle finger to palm area . NO defomrity , no skin changes.), Capillary Refill (less than 2sec to Right hand), No Deformity (Right hand), No Swelling Neurological/Psych: Oriented x3, Normal Speech, Normal Motor, Normal Sensation, Normal Reflexes ED Course And Treatment O2 Sat by Pulse Oximetry: 100 Pulse Ox Interpretation: Normal Progress Note: On re-evaluation, pt is afebrile, hemodynamicaly stable. non- toxic. Ambulatory in Ed with stable gait. PulsEOx 100% RA. neck: Supple, (-) meningeal sign. ENT: exam c/w acute pharyngitis. uvula midline, no edmea. no drooling. Lungs: CTA B/L, BS equal B/L. Abd: benign, (-) guaridng, (-) rebound. Back: (-) CVA tenderness, Left flank tenderness, no midline tenderness. Neurologicaly intact. UA results review and appears normal. Pt has clinical finidngs c/w left flank, Right middle finger trigger finger, acute pharyngitis. Pt advised and ref. to f/u w ith PMD in 2-3 days for re-eavl. return to ED if any worsening or new changes. Disposition Counseled Patient/Family Regarding: Studies Performed, Diagnosis, Need For Followup - Disposition Referrals: [facility] [Outside] Disposition: HOME/ ROUTINE Disposition Time: 11:48 Condition: STABLE Additional Instructions: LIGHT DUTY TO LOWER BACK, AVOID HEAVY LIFTING, BENDING FORWARD, ETC. ENCOURAGE FLUIDS TAKE MEDICATION PRESCRIBED FOLLOW UP WITH PMD IN 2-3 DAYS FOR RE-EVALUATION. RETURN TO ED IF ANY WORSENING OR NEW CHANGES. Prescriptions: Amoxicillin [Amoxil 500 mg Cap] 500 mg PO Q6 #28 cap Ibuprofen [Motrin] 1 tab PO TID PRN #20 tab PRN Reason: Pain Methocarbamol [Robaxin] 500 mg PO TID #14 tab Instructions: Flank Pain (ED), Trigger Finger (ED) Forms: [facility] (Bermudian), Work Excuse Print Language: ALBANIAN - Clinical Impression Clinical Impression: Flank pain, Pharyngitis, Trigger finger
== END 2017-07-13 12:11 | disposition home or self-care (01) ==
LOC: C.ER 10:34
DX: M65.331 Trigger finger, right middle finger (principal); R10.9 Unspecified abdominal pain; J02.9 Acute pharyngitis, unspecified

== ENCOUNTER 2017-12-16 09:27 | Emergency (ER) | payer OTHER ==
[2017-12-16 09:33] VITALS: RESP 18; TEMP 97.7; O2SAT 100
[2017-12-16] MEDS ORDERED: Tmp-Smz 800 mg-160 mg DS Tab PO STA (09:59)
[2017-12-16] MEDS ORDERED: Tdap Vaccine 0.5 ml Vial (10-64 yrs) IM ONE ×2 (10:01→10:05)
[2017-12-16] MEDS ORDERED: Tmp-Smz 800 mg-160 mg DS Tab ONE (10:04)
--- NOTE | 2017-12-16 10:04 | C.PDOC ---
History Of Present Illness 52yo female, right hand dominant, presents to ER for evaluation of a possible insect bite to her left 5th digit. Patient is unsure of what bit her but states she has redness and swelling to the area. She denies taking any medications for her symptoms. She has no other medical complaints. TDAP not up to date. PMD: None provided Time Seen by Provider: 12/16/17 09:47 Chief Complaint (Nursing): Finger,Hand,&Wrist History Per: Patient History/Exam Limitations: no limitations Onset/Duration Of Symptoms: Days Current Symptoms Are (Timing): Still Present Quality: "Pain" Additional History Per: Patient Past Medical History Reviewed: Historical Data, Nursing Documentation, Vital Signs Vital Signs: Last Vital Signs Temp 97.7 F 12/16/17 10:16 Pulse 60 12/16/17 10:16 Resp 18 12/16/17 10:16 BP 159/86 H 12/16/17 10:16 Pulse Ox 100 12/16/17 10:16 - Medical History PMH: Asthma Denies: Chronic Kidney Disease Surgical History: Appendectomy - [facility] Procedures IRRIGATION OF EAR (02/23/15) OTHER SKIN & SUBQ I D (01/26/14) Family History: States: No Known Family Hx - Social History Hx Tobacco Use: Yes Hx Alcohol Use: No Hx Substance Use: No - Immunization History Hx Tetanus Toxoid Vaccination: No Hx Influenza Vaccination: No Hx Pneumococcal Vaccination: No Review Of Systems Musculoskeletal: Positive for: Hand Pain (left 5th digit pain and swelling) Physical Exam - Physical Exam Appears: Non-toxic, No Acute Distress Skin: Warm, Dry Neck: Supple Chest: Symmetrical Cardiovascular: Rhythm Regular Respiratory: Normal Breath Sounds Extremity: Normal ROM (FROM of all digits on left hand), Capillary Refill (< 2 seconds), No Deformity, Swelling (erythema and swelling to dorsum of left 5th proximal phalanx. ), Other (neurovascular sesnations intact) Neurological/Psych: Oriented x3, Normal Motor, Normal Sensation ED Course And Treatment O2 Sat by Pulse Oximetry: 100 (RA) Pulse Ox Interpretation: Normal Medical Decision Making Medical Decision Making: Impression: Cellulitis Plan: -- TDAP booster -- Bactrim 1tab PO Patient instructed to take Bactrim as prescribed and follow up with PMD in 2-3 days. Stable for discharge home. Disposition Counseled Patient/Family Regarding: Diagnosis, Need For Followup, Rx Given - Disposition Referrals: [facility] [Outside] Disposition: HOME/ ROUTINE Disposition Time: 10:04 Condition: STABLE Additional Instructions: follow up with medical clinic in 2 days call to make an appointment take medications as prescribed return to ER if symptoms worsens or progress Prescriptions: Naproxen [Naprosyn] 500 mg PO BID PRN #16 tab PRN Reason: Pain, Moderate (4-7) Sulfamethoxazole/Trimethoprim [Bactrim DS 800 mg-160 mg] 1 tab PO BID #20 tab Instructions: Cellulitis (Skin Infection), Adult (DC) Forms: Gen Discharge Inst Northern Irish, [employer] (Northern Irish) Print Language: CONGOLESE - Clinical Impression Clinical Impression: Cellulitis - Scribe Statement The provider has reviewed the documentation as recorded by the Scribe (Sabina Yepez) Provider Attestation: All medical record entries made by the Emilieibe were at my direction and personally dictated by me. I have reviewed the chart and agree that the record accurately reflects my personal performance of the history, physical exam, medical decision making, and the department course for this patient. I have also personally directed, reviewed, and agree with the discharge instructions and disposition.
[2017-12-16 10:16] VITALS: BP 159/86; PULSE 60
== END 2017-12-16 10:20 | disposition home or self-care (01) ==
LOC: C.ER 09:27
DX: L03.012 Cellulitis of left finger (principal); Z23 Encounter for immunization

== ENCOUNTER 2017-12-18 14:16 | Emergency (ER) | payer OTHER ==
[2017-12-18 14:36] VITALS: RESP 20; TEMP 98.9; O2SAT 100
[2017-12-18] MEDS ORDERED: Oxycodone/Acetaminophen 5/325 mg Tab PO STA (16:18)
[2017-12-18] MEDS ORDERED: Oxycodone/Acetaminophen 5/325 mg Tab ONE (16:26)
[2017-12-18] MEDS ORDERED: Lidocaine 1% Inj (20ml) INFIL ONE (16:26)
--- NOTE | 2017-12-18 16:27 | C.PDOC ---
History Of Present Illness 52 year old female presents to the ED c/o injury to her left pinky. 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 Patient was seen in the ED and was prescribed antibiotics and naproxen for pain. Patient states medication not helping with her pain and the swelling has worsened. Patient denies fall, trauma, fever, chills, nausea, vomit , weakness, numbness. (Hedy Altamirano) History Per: Patient History/Exam Limitations: no limitations Onset/Duration Of Symptoms: Days Current Symptoms Are (Timing): Still Present Quality: Burning, "Pain" Exacerbating Factor(s): Movement Recent travel outside of the [place]: No Additional History Per: Patient Time Seen by Provider: 12/18/17 15:46 Chief Complaint (Nursing): Upper Extremity Problem/Injury Past Medical History Reviewed: Historical Data, Nursing Documentation, Vital Signs - Medical History PMH: Asthma Denies: Chronic Kidney Disease Surgical History: Appendectomy Family History: States: Unknown Family Hx - Social History Hx Tobacco Use: Yes Hx Alcohol Use: No Hx Substance Use: No - Immunization History Hx Tetanus Toxoid Vaccination: Yes (2018) Hx Influenza Vaccination: No Hx Pneumococcal Vaccination: No Vital Signs: Last Vital Signs Temp 98.9 F 12/18/17 14:33 Pulse 67 12/18/17 17:18 Resp 20 12/18/17 17:18 BP 128/72 12/18/17 17:18 Pulse Ox 100 12/18/17 17:28 - [facility] Procedures IRRIGATION OF EAR (02/23/15) OTHER SKIN & SUBQ I D (01/26/14) Review Of Systems Constitutional: Negative for: Fever, Chills Cardiovascular: Negative for: Chest Pain Respiratory: Negative for: Shortness of Breath Gastrointestinal: Negative for: Nausea, Vomiting Musculoskeletal: Positive for: Hand Pain Neurological: Negative for: Weakness, Numbness Physical Exam - Physical Exam Appears: Non-toxic, No Acute Distress Skin: Normal Color, Warm, Dry Head: Atraumatic, Normacephalic Eye(s): bilateral: Normal Inspection Extremity: Normal ROM (decreased flexion on left pinky), Tenderness (left pinky) , Capillary Refill (< 2 seconds), Swelling (left pinky, with scab erythema around the area with warmth) Pulses: Left Radial: Normal, Right Radial: Normal Neurological/Psych: Oriented x3, Normal Speech, Normal Motor, Normal Sensation Gait: Steady ED Course And Treatment O2 Sat by Pulse Oximetry: 100 (ON RA) Pulse Ox Interpretation: Normal Medical Decision Making Medical Decision Making: Plan: * Lidocaine 1% * Percocet 1 tab PO 1705 left pinky finger was anesthetized with digital block in sterile manner; scab removed and scant purulent drainage. culture obtained and sent to lab. dressing put on. (Hedy Altamirano) Disposition - Disposition Disposition Time: 17:21 - Disposition Referrals: Reinier Ordaz MD [Staff Provider] - Disposition: HOME/ ROUTINE Condition: GOOD Additional Instructions: Complete antibitico prescrito el otro da. Agregue un nuevo antibitico ( cefalexina) y tmelo hasta que se complete. Llame al mdico de cabecera Dr. Ordaz para concertar la katelynn ms prxima. Debe remojar marsh mano en agua tibia varias veces al da para ayudar con el drenaje. Vuelva a la leonardo de emergencias si el enrojecimiento y la hinchazn se extienden ms all de marsh primer nudillo en el dedo meique dusty, o la hinchazn empeora o si tiene fiebre. Paola ibupforen por el dolor. Paola Percocet para el dolor valerie. Mantenga la mano izquierda elevada cuando sea posible. Complete antiblitic prescrbied to you the other day. Add new antibiotic ( cephalexin) and take until completed. Call hand doctor Dr Ordaz tomorrow to make soonest appointment. You should soak your hand in warm water several times a day to help drainage. Return to ER if redness and swellig extend beyond your first knucklle on left pinky finger, or swelling worsens or you develop fever. Take ibupforen for pain. Take Percocet for severe pain. Keep left hand elevated when possible. 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 - Scribe Statement The provider has reviewed the documentation as recorded by the Scribe - Scribe Statement Zachary Bardales All medical record entries made by the Scribe were at my direction and personally dictated by me. I have reviewed the chart and agree that the record accurately reflects my personal performance of the history, physical exam, medical decision making, and the department course for this patient. I have also personally directed, reviewed, and agree with the discharge instructions and disposition. (Hedy Altamirano) Addendum Addendum: 12/20/17 12:00 Informed that patient's wound culture came back (+) MRSA 12:30 Left voicemail at patient's home phone with call back number. 2:30 Left 2nd voicemail at patient's home phone. Pending call back. 4:30 Left 3rd voicemail. Pending call back. (Jai Martins)
[2017-12-18] MEDS ORDERED: Lidocaine Hydrochloride 10 ML INJ ONE (16:35)
[2017-12-18 17:20] VITALS: BP 128/72; PULSE 67
== END 2017-12-18 17:36 | disposition home or self-care (01) ==
LOC: C.ER 14:16
DX: L03.012 Cellulitis of left finger (principal); Z72.0 Tobacco use

== ENCOUNTER 2017-12-20 18:18 | Emergency (ER) | payer OTHER ==
--- NOTE | 2017-12-20 18:48 | C.PDOC ---
History Of Present Illness 52 y/o female presents to the ED initially complaining of a cough since Sunday. When coughing, she notes her chest hurts. Additionally patient was seen here on 12/16/17 for a bite wound to the left 5th digit, and was prescribed Bactrim. She returned on 12/18/17 and Keflex was added. Labs reviewed from prior visits, wound culture demonstrates (+) MRSA infection. Patient reports taking both antibiotics as prescribed and states the inflammation used to extend down the dorsal aspect of the hand, but is now improved. She denies any SOB or fevers. On arrival to the ED patient is febrile. Time Seen by Provider: 12/20/17 18:41 Chief Complaint (Nursing): Chest Pain History Per: Patient History/Exam Limitations: no limitations Onset/Duration Of Symptoms: Days Current Symptoms Are (Timing): Still Present Reports Recently: Seen In ED Past Medical History Reviewed: Historical Data, Nursing Documentation, Vital Signs Vital Signs: Last Vital Signs Temp 102.4 F H 12/20/17 18:36 Pulse 98 H 12/20/17 18:36 Resp 20 12/20/17 18:36 BP 103/58 L 12/20/17 18:36 Pulse Ox 98 12/20/17 18:54 - Medical History PMH: Asthma Denies: Chronic Kidney Disease Surgical History: Appendectomy - [facility] Procedures IRRIGATION OF EAR (02/23/15) OTHER SKIN & SUBQ I D (01/26/14) Family History: States: Unknown Family Hx - Social History Hx Tobacco Use: Yes Hx Alcohol Use: No Hx Substance Use: No - Immunization History Hx Tetanus Toxoid Vaccination: Yes (2017) Hx Influenza Vaccination: No Hx Pneumococcal Vaccination: No Review Of Systems Except As Marked, All Systems Reviewed And Found Negative. Constitutional: Positive for: Fever Cardiovascular: Positive for: Chest Pain (only when coughing) Respiratory: Positive for: Cough. Negative for: Shortness of Breath Skin: Positive for: Lesions (finger wound -- left 5th digit) Physical Exam - Physical Exam Appears: Non-toxic, No Acute Distress Skin: Normal Color, Warm, Dry Head: Atraumatic, Normacephalic Eye(s): bilateral: Normal Inspection, PERRL, EOMI Oral Mucosa: Moist Neck: Normal ROM, Supple Chest: Symmetrical, No Tenderness Cardiovascular: Rhythm Regular, No Murmur Respiratory: Normal Breath Sounds, No Accessory Muscle Use, No Rales, No Rhonchi , No Wheezing, Other (No respiratory distress) Gastrointestinal/Abdominal: Soft, No Tenderness, No Distention Extremity: Normal ROM, Swelling (minimal swelling to left 5th digit), Other ( Wound dressing removed; Mpw-rlma-yjfmnawh pus expressed from wound; no streaking , wound appears much improved based on ink gómez) Pulses: Left Radial: Normal, Right Radial: Normal Neurological/Psych: Oriented x3, Normal Speech ED Course And Treatment ECG: Interpreted By Me ECG Rhythm: Sinus Rhythm Rate From EC O2 Sat by Pulse Oximetry: 98 (RA) Pulse Ox Interpretation: Normal Medical Decision Making Medical Decision Making: taking Bactrim AND Keflex for L 5th finger wound which is healing nicely. small puss eminating from wound shows healing smaller area of erythema shows lessening cellulitis cough and congestion are probably viral EKG NSR 99 already on on 2 ABX, proabably viral URI Disposition Counseled Patient/Family Regarding: Studies Performed, Diagnosis, Need For Followup - Disposition Referrals: [facility] [Outside] [facility] [employer] [Outside] Disposition Time: 18:54 Condition: GOOD Additional Instructions: nakia Dayquil y Nyquil asad necessario para tos y congestion. Sigue Bactrim dos veces al delores hasta completos Sigue Keflex Antibiotico 2 veces al delores hasta completos Moja con tanacross 10 minutos por hora asad necessario Instructions: Cough in Adults, Cough, Runny Nose, and the Common Cold Forms: [facility] (Croatian) Print Language: TAMAZIGHT - POA Present On Arrival: None - Clinical Impression Clinical Impression: Wound check, abscess, Respiratory tract congestion with cough - Scribe Statement The provider has reviewed the documentation as recorded by the Luciano Marina Provider Attestation: All medical record entries made by the Emilieibe were at my direction and personally dictated by me. I have reviewed the chart and agree that the record accurately reflects my personal performance of the history, physical exam, medical decision making, and the department course for this patient. I have also personally directed, reviewed, and agree with the discharge instructions and disposition.
--- NOTE | 2017-12-20 18:48 | C.PDOC ---
Time Seen by Provider: 12/20/17 18:36 Chief Complaint (Nursing): Chest Pain Past Medical History Vital Signs: Last Vital Signs Temp 102.4 F H 12/20/17 18:36 Pulse 98 H 12/20/17 18:36 Resp 20 12/20/17 18:36 BP 103/58 L 12/20/17 18:36 Pulse Ox 98 12/20/17 18:36 - Medical History PMH: Asthma Denies: Chronic Kidney Disease Surgical History: Appendectomy - [facility] Procedures IRRIGATION OF EAR (02/23/15) OTHER SKIN & SUBQ I D (01/26/14) Family History: States: Unknown Family Hx - Social History Hx Tobacco Use: Yes Hx Alcohol Use: No Hx Substance Use: No - Immunization History Hx Tetanus Toxoid Vaccination: Yes (2017) Hx Influenza Vaccination: No Hx Pneumococcal Vaccination: No ED Course And Treatment O2 Sat by Pulse Oximetry: 98 Medical Decision Making Medical Decision Making: taking Bactrim AND Keflex for L 5th finger wound which is healing nicely. small puss eminating from wound shows healing smaller area of erythema shows lessening cellulitis cough and congestion are probably viral EKG NSR 99 already on on 2 ABX, proabably viral URI Disposition Doctor Will See Patient In The: Office Counseled Patient/Family Regarding: Studies Performed, Diagnosis - Disposition Disposition: HOME/ ROUTINE Disposition Time: 18:48 Condition: GOOD - Clinical Impression Clinical Impression: Wound check, abscess, Respiratory tract congestion with cough
[2017-12-20] MEDS ORDERED: guaiFENesin 100 mg/5 ml Syrup UD PO STA (18:51)
[2017-12-20] MEDS ORDERED: guaiFENesin 100 mg/5 ml Syrup UD ONE (18:58)
[2017-12-20 19:56] VITALS: BP 102/60; PULSE 99; RESP 18; TEMP 100; O2SAT 96
--- NOTE | 2017-12-22 02:50 | CARD ---
APPROVED REPORT EKG Measurement Heart [id number] HI [id number] <Conclusion> Normal sinus rhythm Biatrial enlargement Abnormal ECG
== END 2017-12-20 19:54 | disposition home or self-care (01) ==
LOC: C.ER 18:18
DX: R05 Cough (principal); R09.89 Other specified symptoms and signs involving the circulatory and respiratory systems; L02.91 Cutaneous abscess, unspecified; Z48.00 Encounter for change or removal of nonsurgical wound dressing

== ENCOUNTER 2018-01-29 15:57 | Emergency (ER) | payer OTHER ==
[2018-01-29 16:01] VITALS: BP 156/89; PULSE 86; RESP 16; TEMP 99.2; O2SAT 100
[2018-01-29] MEDS ORDERED: Tmp-Smz 800 mg-160 mg DS Tab PO STA (16:30)
--- NOTE | 2018-01-29 16:34 | C.PDOC ---
History Of Present Illness 52 year old female presents to the ED for evaluation of two abscesses noted to her left axillary region. Patient notes the two abscesses touch each other when she puts her arm down. Patient states she tried squeezing the area, but it has now worsened. She denies fever and chills. Time Seen by Provider: 01/29/18 16:05 Chief Complaint (Nursing): Abnormal Skin Integrity History Per: Patient History/Exam Limitations: no limitations Onset/Duration Of Symptoms: Days Current Symptoms Are (Timing): Worse Additional History Per: Patient Past Medical History Reviewed: Historical Data, Nursing Documentation, Vital Signs Vital Signs: Last Vital Signs Temp 99.2 F 01/29/18 15:59 Pulse 86 01/29/18 15:59 Resp 16 01/29/18 15:59 BP 156/89 H 01/29/18 15:59 Pulse Ox 100 01/29/18 16:37 - Medical History PMH: Asthma Denies: Chronic Kidney Disease Surgical History: Appendectomy - [facility] Procedures IRRIGATION OF EAR (02/23/15) OTHER SKIN & SUBQ I D (01/26/14) Family History: States: Unknown Family Hx - Social History Hx Tobacco Use: Yes Hx Alcohol Use: No Hx Substance Use: No - Immunization History Hx Tetanus Toxoid Vaccination: Yes (2017) Hx Influenza Vaccination: No Hx Pneumococcal Vaccination: No Review Of Systems Skin: Positive for: Other (abscess to left axillary region ) Physical Exam - Physical Exam Appears: Non-toxic, No Acute Distress Skin: Normal Color, Warm, Dry, Other (firm induration of skin noted to left axillary region. no fluctuation or drainage noted ) Head: Atraumatic, Normacephalic Eye(s): bilateral: Normal Inspection Oral Mucosa: Moist Neck: Supple Chest: Symmetrical, No Deformity, No Tenderness Cardiovascular: Rhythm Regular Respiratory: Normal Breath Sounds Extremity: Normal ROM, Capillary Refill (less than 2 seconds ) Neurological/Psych: Oriented x3, Normal Speech, Normal Cognition ED Course And Treatment O2 Sat by Pulse Oximetry: 100 (on RA) Pulse Ox Interpretation: Normal Progress Note: Bactrim PO and Keflex PO administered. On re-exam, patient is resting comfortably, showing no signs of distress and is stable for discharge. Patient is advised to return to ED in two days for drainage of the areas. Disposition - Disposition Disposition: HOME/ ROUTINE Disposition Time: 16:34 Condition: STABLE Additional Instructions: Follow up with PMD within 1-2 days. Return to ED if feel worse. Return to ED in 2-3 days to drain an abscess. 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 - Scribe Statement The provider has reviewed the documentation as recorded by the Scribe (Melony Escobar) All medical record entries made by the Scribe were at my direction and personally dictated by me. I have reviewed the chart and agree that the record accurately reflects my personal performance of the history, physical exam, medical decision making, and the department course for this patient. I have also personally directed, reviewed, and agree with the discharge instructions and disposition.
[2018-01-29] MEDS ORDERED: Tmp-Smz 800 mg-160 mg DS Tab ONE (16:46)
== END 2018-01-29 16:46 | disposition home or self-care (01) ==
LOC: C.ER 15:57
DX: L02.412 Cutaneous abscess of left axilla (principal)

== ENCOUNTER 2018-01-31 19:56 | Observation (INO) | payer OTHER ==
[2018-01-31] MEDS ORDERED: Sodium Chloride 0.9% 1,000 ML IV ONE ×2 (21:03→23:11)
[2018-01-31] MEDS ORDERED: Sodium Chloride 0.9% 1,000 ML ONE (21:13)
[2018-01-31 21:27] LABS: BASO % 0.1 % (0.0-2.0); EOS # 0.2 K/uL (0.0-0.7); EOS % 2.1 % (0.0-4.0); HEMOGLOBIN 12.7 g/dL (11.0-16.0); LYMPH # 0.5 K/uL (1.0-4.3); LYMPH % 5.9 % (20.0-40.0); MEAN CELL VOLUME 89.4 fL (81.0-99.0); MEAN CORPUSCULAR HEMOGLOBIN 30.7 pg (27.0-31.0); MEAN CORPUSCULAR HGB CONC 34.4 g/dL (33.0-37.0); MEAN PLATELET VOLUME 9.7 fL (7.2-11.7); MONO # 0.6 K/uL (0.0-0.8); MONO % 7.1 % (0.0-10.0); NEUT # 7.2 K/uL (1.8-7.0); NEUT % 84.8 % (50.0-75.0); PLATELET COUNT 164 K/uL (130-400); RBC 4.12 Mil/uL (3.80-5.20); WHITE BLOOD COUNT 8.6 K/uL (4.8-10.8)
[2018-01-31 21:36] LABS: SQUAMOUS EPITHIAL < 1 /hpf (0-5); URINE BACTERIA OCC (<OCC); URINE BILIRUBIN NEGATIVE (NEGATIVE); URINE BLOOD 1+ (NEGATIVE); URINE CLARITY Clear (Clear); URINE COLOR Yellow (YELLOW); URINE GLUCOSE (UA) NORMAL (Normal); URINE PROTEIN 1+ mg/dL (NEGATIVE)
[2018-01-31 21:41] LABS: HCG,QUALITATIVE URINE NEGATIVE (NEGATIVE)
[2018-01-31 21:41] LABS: ALB/GLOB RATIO 1.2 (1.0-2.1); ALBUMIN 3.9 g/dL (3.5-5.0); ALT/SGPT 71 U/L (9-52); AST/SGOT 51 U/L (14-36); BLOOD UREA NITROGEN 55 mg/dL (7-17); GFR AFRICAN-AMERICAN 21; GFR NON-AFRICAN AMERICAN 18; LIPASE 80 U/L (23-300)
[2018-01-31 21:42] LABS: BARBITURATES, UR NEGATIVE (NEGATIVE); BENZODIAZEPINES, UR NEGATIVE (NEGATIVE); OPIATES, UR NEGATIVE (NEGATIVE); PHENCYCLIDINE, UR NEGATIVE (NEGATIVE); URINE LEUKOCYTE ESTERASE TRACE Leu/uL (Negative)
[2018-01-31 22:02] LABS: BANDS 1 % (0-2); EOSINOPHIL 2 % (0-4); LYMPHOCYTE 7 % (20-40); MONOCYTE 5 % (0-10); NEUTROPHIL 85 % (50-75); PLATELET ESTIMATE NORMAL (NORMAL); TOTAL CELLS COUNTED 100
--- NOTE | 2018-01-31 23:19 | C.PDOC ---
History Of Present Illness 52 y/o female presents to ED for complaints of nausea, vomiting and diarrhea that began yesterday. Patient also reports reproducible left upper chest pain. Denies new food, fever, chills, or any other physical complaints. Time Seen by Provider: 01/31/18 20:57 Chief Complaint (Nursing): Chest Pain History Per: Patient History/Exam Limitations: no limitations Onset/Duration Of Symptoms: Hrs Current Symptoms Are (Timing): Still Present Radiation Of Pain To:: None Associated Symptoms: Nausea, Vomiting, Diarrhea, Chest Pain. denies: Fever, Chills Exacerbating Factors: None Alleviating Factors: None Last Bowel Movement: Today Recent travel outside of the [place]: No Abnormal Vaginal Bleeding: No Past Medical History Reviewed: Historical Data, Nursing Documentation, Vital Signs Vital Signs: Last Vital Signs Temp 99.9 F H 01/31/18 20:02 Pulse 114 H 01/31/18 20:02 Resp 16 01/31/18 20:02 BP 89/59 L 01/31/18 20:02 Pulse Ox 99 01/31/18 23:21 - Medical History PMH: Asthma Surgical History: Appendectomy - [facility] Procedures IRRIGATION OF EAR (02/23/15) OTHER SKIN & SUBQ I D (01/26/14) Family History: States: Unknown Family Hx - Social History Hx Tobacco Use: Yes Hx Alcohol Use: No Hx Substance Use: No - Immunization History Hx Tetanus Toxoid Vaccination: Yes (2017) Hx Influenza Vaccination: No Hx Pneumococcal Vaccination: No Review Of Systems Constitutional: Negative for: Fever, Chills Cardiovascular: Positive for: Chest Pain (Reproducible left upper chest ) Gastrointestinal: Positive for: Nausea, Vomiting, Diarrhea. Negative for: Abdominal Pain Skin: Negative for: Rash Neurological: Negative for: Weakness, Numbness Physical Exam - Physical Exam Appears: Well, Non-toxic, No Acute Distress Skin: Normal Color, Warm, Dry Head: Atraumatic, Normacephalic Eye(s): bilateral: Normal Inspection, PERRL, EOMI Oral Mucosa: Dry Neck: Supple Chest: Symmetrical, No Tenderness, Other (reproducible chest pain parasternal between T4-T5) Cardiovascular: Rhythm Regular Respiratory: Normal Breath Sounds, No Decreased Breath Sounds, No Rales, No Rhonchi, No Wheezing Gastrointestinal/Abdominal: Soft, Tenderness (vaguely) Extremity: Normal ROM, No Pedal Edema, No Deformity Extremity: Bilateral: Atraumatic, Normal Color And Temperature, Normal ROM Neurological/Psych: Oriented x3, Normal Speech (Speaking in full sentences ), Other (No focal deficits ) Gait: Steady ED Course And Treatment - Laboratory Results Result Diagrams: 01/31/18 21:14 01/31/18 21:14 Lab Interpretation: Abnormal (creat increased from baseline 0.7) Urine POC: Negative (tox,) ECG: Interpreted By Me ECG Rhythm: Sinus Rhythm ECG Interpretation: Normal O2 Sat by Pulse Oximetry: 99 (RA) Pulse Ox Interpretation: Normal - Radiology CXR: Interpreted by Me CXR Interpretation: Yes: No Acute Disease - Other Rad abd x 2 X-Ray: Interpreted by Me (scant stool, no obst/FA) Reevaluation Time: 23:19 Reassessment Condition: Improved - Physician Consult Information Outcome Of Conversation: 2315: d/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 Medical Decision Making Medical Decision Making: Administered Protonix, Toradol, Zofran and IV fluids. Ordered EKG, blood work, Obstructive series X-Ray, and urinalysis. gastroenteritis of ? etiology, leading to dehydration, transient hypotension, and acute renal insuffiency creat 2.8 from baseline 0.7. No hyperkalemia. Disposition Doctor Will See Patient In The: Hospital Counseled Patient/Family Regarding: Studies Performed, Diagnosis - Disposition Disposition: HOSPITALIZED Disposition Time: 23:20 Condition: GOOD - Clinical Impression Clinical Impression: Chest discomfort, Gastroenteritis, Costochondral chest pain, Acute renal insufficiency - Scribe Statement The provider has reviewed the documentation as recorded by the Luciano Cruz All medical record entries made by the Emilieibjosefa were at my direction and personally dictated by me. I have reviewed the chart and agree that the record accurately reflects my personal performance of the history, physical exam, medical decision making, and the department course for this patient. I have also personally directed, reviewed, and agree with the discharge instructions and disposition.
[2018-01-31] MEDS ORDERED: Sodium Chloride 0.9% 2,000 ML ONE (23:59)
[2018-02-01] MEDS ORDERED: Sodium Chloride 0.9% 1,000 ML IV ONE (00:13)
[2018-02-01] MEDS: Sodium Chloride 0.9% 1,000 ML IV SCH ×2 (03:29→17:36)
[2018-02-01 08:30] LABS: BASO % 0.4 % (0.0-2.0); EOS # 0.3 K/uL (0.0-0.7); EOS % 4.7 % (0.0-4.0); LYMPH % 15.8 % (20.0-40.0); MEAN CELL VOLUME 90.3 fL (81.0-99.0); MEAN CORPUSCULAR HEMOGLOBIN 31.1 pg (27.0-31.0); MEAN CORPUSCULAR HGB CONC 34.5 g/dL (33.0-37.0); MEAN PLATELET VOLUME 9.6 fL (7.2-11.7); MONO # 0.4 K/uL (0.0-0.8); NEUT # 4.5 K/uL (1.8-7.0); NEUT % 73.1 % (50.0-75.0); NRBC % 0.3 % (0.0-2.0); RBC 3.42 Mil/uL (3.80-5.20); RED CELL DISTRIBUTION WIDTH 14.2 % (11.5-14.5); WHITE BLOOD COUNT 6.1 K/uL (4.8-10.8)
[2018-02-01 08:38] LABS: HEMOGLOBIN 10.7 g/dL (11.0-16.0)
[2018-02-01 08:46] LABS: CALCIUM 7.3 mg/dl (8.6-10.4)
--- NOTE | 2018-02-01 08:54 | RAD ---
PROCEDURE: Radiographs of the chest and abdomen (obstructive series) HISTORY: Abdominal pain COMPARISON: No prior. TECHNIQUE: AP radiograph of the chest, with upright and supine radiographs of the abdomen. FINDINGS: CHEST: Lungs: The lungs are well inflated and clear. There is a calcified nodule in the right mid lung. Cardiovascular: Normal size heart. No pulmonary vascular congestion. Pleura: No pleural fluid. No pneumothorax. Other findings: None. ABDOMEN AND PELVIS: Bowel: There is gas in the colon. The bowel gas pattern is nonspecific. Free air: None. Bones: Unremarkable. Other findings: None. IMPRESSION: Nonobstructive bowel-gas pattern. Clear lungs.
[2018-02-01] MEDS: Enoxaparin 30 mg Syringe SC SCH (09:57)
--- NOTE | 2018-02-01 10:47 | CP.PCM.PN ---
Subjective - Date & Time of Evaluation Date of Evaluation: 02/01/18 Time of Evaluation: 10:35 - Subjective Subjective: House Dr note Was paged at 10:04 am by nurse for suspected fell. nurse stated that nurse fell in the bathroom fifteen minutes prior. The patient stated that she got up to go to the bathroom and fell dizziness when she got up from toilet. Patient hit the back of her head on the toilet flush handle. Patient sat back in the toilet and was able to walk out of bathroom and back to bed. Patient reports having mild headache in her forehead. Patient states feeling dizziness, described as if the room is moving. Upon arriving in patient's room, patient lies comfortably in bed. Patient admits to continuous chest pain, SOB and abdominal pain; all of which were present on admission. Patient denies nausea, vomiting, diarrhea. Patient denies vision changes. Physical Exam General: No acute distress, well, nontoxic lying in bed HEENT: Head normocephalic, atraumatic, no lacerations noted upon inspection, no gross deformities. EOMI, PERRLA. No nystagmus noted. Cardio: S1 S2 RRR Pulm: CTA B/L, no wheezes, ronchi, rales, normal breathing pattern GI: Abdomen mildly distended, Bowel sounds presents on 4 Qs, Soft, nontender Extremities: no Upper or lower extremities lesions, lacerations or open wounds. No pedal edema, tenderness on LE, pedal pulse present B/L Neuro: AAOx3, CN II-XII intact, Muscle strength 3/5 on right upper extremity, 5/ 5 on left upper extremity, 5/5 on Right and left lower extremity. Reflexes intact. Psych: normal mood and affect skin: intact, normal color, no abrasions or lesion noted A/P Mechanical fall CT head ordered Labs reviewed Dr Khan was notified by nursing staff of event. He will be following up the imaging Assessing need for further care Micky Whitley, PGY-1 Objective - Vital Signs/Intake and Output Vital Signs (last 24 hours): Temp Pulse Resp BP Pulse Ox 98.4 F 76 20 118/70 98 02/01/18 02:35 02/01/18 02:35 02/01/18 02:35 02/01/18 02:35 02/01/18 02:35 - Medications Medications: Current Medications Enoxaparin Sodium (Lovenox) 30 mg SC DAILY [facility] Last Admin: 02/01/18 09:57 Dose: 30 mg Sodium Chloride (Sodium Chloride 0.9%) 1,000 mls @ 150 mls/hr IV .Q6H40M [facility] Last Admin: 02/01/18 03:29 Dose: 150 mls/hr Ondansetron HCl (Zofran Inj) 4 mg IVP Q4 PRN PRN Reason: FOR NAUSEA/VOMITING Last Admin: 02/01/18 06:50 Dose: 4 mg - Labs Labs: 02/01/18 08:07 02/01/18 08:07
[2018-02-01 11:47] LABS: SQUAMOUS EPITHIAL < 1 /hpf (0-5); URINE BACTERIA RARE (<OCC); URINE BILIRUBIN NEGATIVE (NEGATIVE); URINE BLOOD 1+ (NEGATIVE); URINE CLARITY Clear (Clear); URINE COLOR Yellow (YELLOW); URINE GLUCOSE (UA) NORMAL (Normal); URINE LEUKOCYTE ESTERASE NEG Leu/uL (Negative); URINE PROTEIN NEGATIVE (NEGATIVE); URINE UROBILINOGEN NORMAL mg/dL (0.2-1.0)
--- NOTE | 2018-02-01 11:50 | CT ---
PROCEDURE: CT HEAD WITHOUT CONTRAST. HISTORY: Status post fall with head trauma COMPARISON: Made with prior study CT scan brain 04/10/2017 TECHNIQUE: Axial computed tomography images were obtained through the head/brain without intravenous contrast. Radiation dose: Total exam DLP = 1108.34 mGy-cm. This CT exam was performed using one or more of the following dose reduction techniques: Automated exposure control, adjustment of the mA and/or kV according to patient size, and/or use of iterative reconstruction technique. FINDINGS: HEMORRHAGE: No acute parenchymal, subarachnoid or extra-axial hemorrhage. BRAIN: Questionable small chronic subcortical ischemic change right frontal lobe. VENTRICLES: No obstructive hydrocephalus. CALVARIUM: Unremarkable. PARANASAL SINUSES: Unremarkable as visualized. No significant inflammatory changes. MASTOID AIR CELLS: Unremarkable as visualized. No inflammatory changes. OTHER FINDINGS: None. IMPRESSION: No acute intracranial hemorrhage. Questionable small chronic subcortical ischemic change right frontal lobe.
--- NOTE | 2018-02-01 23:11 | CP.PCM.HP ---
Past Patient History - Infectious Disease Hx of Infectious Diseases: None - Past Medical History & Family History Past Medical History?: Yes - Past Social History Smoking Status: Former Smoker - CARDIAC Hx Cardiac Disorders: No - PULMONARY Hx Respiratory Disorders: Yes Hx Asthma: Yes - NEUROLOGICAL Hx Neurological Disorder: No - HEENT Hx HEENT Problems: No - RENAL Hx Chronic Kidney Disease: No - ENDOCRINE/METABOLIC Hx Endocrine Disorders: No - HEMATOLOGICAL/ONCOLOGICAL Hx Blood Disorders: No - INTEGUMENTARY Hx Dermatological Problems: No - MUSCULOSKELETAL/RHEUMATOLOGICAL Hx Falls: No Other/Comment: had surgery for pack pain - GASTROINTESTINAL Hx Gastrointestinal Disorders: No - GENITOURINARY/GYNECOLOGICAL Hx Genitourinary Disorders: No - PSYCHIATRIC Hx Psychophysiologic Disorder: No Hx Substance Use: No - SURGICAL HISTORY Hx Surgeries: Yes Hx Appendectomy: Yes - ANESTHESIA Hx Anesthesia: Yes Hx Anesthesia Reactions: No Meds Allergies/Adverse Reactions: Allergies Allergy/AdvReac Type Severity Reaction Status Date / Time No Known Allergies Allergy Verified 01/31/18 20:05 Results - Vital Signs Recent Vital Signs: Last Vital Signs Temp 98.2 F 02/01/18 15:57 Pulse 64 02/01/18 15:57 Resp 18 02/01/18 15:57 BP 136/80 02/01/18 15:57 Pulse Ox 98 02/01/18 15:57 - Labs Result Diagrams: 02/01/18 08:07 02/01/18 08:07 Labs: Laboratory Results - last 24 hr 02/01/18 02/01/18 02/01/18 08:07 08:07 11:34 WBC 6.1 RBC 3.42 L Hgb 10.7 L D Hct 30.9 L MCV 90.3 MCH 31.1 H MCHC 34.5 RDW 14.2 Plt Count 141 MPV 9.6 Neut % (Auto) 73.1 Lymph % (Auto) 15.8 L [place] % (Auto) 6.0 Eos % (Auto) 4.7 H Baso % (Auto) 0.4 Neut # (Auto) 4.5 Lymph # (Auto) 1.0 [place] # (Auto) 0.4 Eos # (Auto) 0.3 Baso # (Auto) 0.0 Sodium 139 Potassium 4.0 Chloride 109 H Carbon Dioxide 20 L Anion Gap 15 BUN 37 H Creatinine 1.5 H Est GFR ( Amer) 44 Est GFR (Non-Af Amer) 36 Random Glucose 84 Calcium 7.3 L Urine Color Yellow Urine Clarity Clear Urine pH 6.0 Ur Specific Bryant 1.011 Urine Protein Negative Urine Glucose (UA) Normal Urine Ketones Negative Urine Blood 1+ H Urine Nitrate Negative Urine Bilirubin Negative Urine Urobilinogen Normal Ur Leukocyte Esterase Neg Urine WBC (Auto) 2 Urine RBC (Auto) 1 Ur Squamous Epith Cells < 1 Urine Bacteria Rare
[2018-02-02] MEDS: Sodium Chloride 0.9% 1,000 ML IV SCH ×2 (00:30→06:43)
[2018-02-02 01:11] VITALS: RESP 20
--- NOTE | 2018-02-02 05:35 | HP ---
CHIEF COMPLAINT: Nausea, vomiting, diarrhea x3 days. HISTORY OF PRESENT ILLNESS: This is a 52-year-old female with no significant past medical history. Three days ago, she developed acute onset of epigastric pain along with that nausea, vomiting, and loose watery stools. Stool is loose, watery, no mucus, no blood. The patient denies any tenesmus. The patient does have epigastric pain. The patient has radiation of pain to the right upper quadrant. She has nausea and everything she eats, she vomits. She has fever, chills, rigors, body aches, tiredness, anorexia, malaise and fatigue. She denied any polyuria, polydipsia, polyphagia. She denies any hematuria, pyuria. She denies any . PAST MEDICAL HISTORY: Nothing significant. SOCIAL HISTORY: Nonsmoker, nondrinker. CURRENT MEDICATIONS: None. PHYSICAL EXAMINATION: GENERAL: A middle-aged female, in no acute distress. VITAL SIGNS: Blood pressure 120/64, pulse 70, respiratory rate 22, temperature 99.7. SKIN: Normal. HEENT: Atraumatic, normocephalic. PERRLA. No icterus or jaundice. Extraocular movements are intact. NECK: Supple. No JVD. No lymph nodes. No thyromegaly. No carotid bruits. CHEST WALL: Bilaterally symmetrical expansion. LUNGS: Clear. CVS: S1 and S2 regular. ABDOMEN: Soft. Mild epigastric tenderness. Bowel sounds are present. RECTAL: No masses. No bleeding. EXTREMITIES: No clubbing, cyanosis, or edema. 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 ASSESSMENT: 1. Acute gastroenteritis. 2. Dehydration. 3. Hypokalemia. PLAN: Admit. IV fluids. Monitor the patient. Darrel Khan MD
[2018-02-02 08:01] LABS: BASO % 0.2 % (0.0-2.0); EOS # 0.3 K/uL (0.0-0.7); EOS % 4.5 % (0.0-4.0); HEMOGLOBIN 11.4 g/dL (11.0-16.0); LYMPH # 1.5 K/uL (1.0-4.3); LYMPH % 24.8 % (20.0-40.0); MEAN CELL VOLUME 90.2 fL (81.0-99.0); MEAN CORPUSCULAR HEMOGLOBIN 30.9 pg (27.0-31.0); MEAN CORPUSCULAR HGB CONC 34.3 g/dL (33.0-37.0); MEAN PLATELET VOLUME 9.3 fL (7.2-11.7); MONO # 0.3 K/uL (0.0-0.8); MONO % 5.8 % (0.0-10.0); NEUT # 3.8 K/uL (1.8-7.0); NEUT % 64.7 % (50.0-75.0); NRBC % 0.1 % (0.0-2.0); RBC 3.68 Mil/uL (3.80-5.20); RED CELL DISTRIBUTION WIDTH 13.9 % (11.5-14.5); WHITE BLOOD COUNT 5.9 K/uL (4.8-10.8)
[2018-02-02 08:10] LABS: BLOOD UREA NITROGEN 14 mg/dL (7-17); CALCIUM 7.9 mg/dl (8.6-10.4); GFR AFRICAN-AMERICAN > 60; GFR NON-AFRICAN AMERICAN > 60
[2018-02-02] MEDS: Enoxaparin 30 mg Syringe SC SCH (10:56)
[2018-02-02 16:56] VITALS: BP 165/86; PULSE 62; TEMP 98.2; O2SAT 98
--- NOTE | 2018-02-02 17:41 | CP.PCM.PN ---
Subjective - Date & Time of Evaluation Date of Evaluation: 02/02/18 Time of Evaluation: 11:00 - Subjective Subjective: alert, awake, no sob or chest pains, NAD. Objective - Vital Signs/Intake and Output Vital Signs (last 24 hours): Temp Pulse Resp BP Pulse Ox 98.2 F 62 20 165/86 H 98 02/02/18 16:54 02/02/18 16:54 02/02/18 16:54 02/02/18 16:54 02/02/18 16:54 Intake and Output: 02/02/18 02/02/18 06:59 18:59 Intake Total 1700 120 Balance 1700 120 - Labs Labs: 02/02/18 07:51 02/02/18 07:51 Assessment and Plan - Assessment and Plan (Free Text) Assessment: 52 Year old female admitted with acute renal insufficiency, gastroenteritis, seen and examined. Patient is alert and orientedx3, denies any pain. creatinine is back to normal. Discussed with DR Khan, plan to discharge home today. Advised to follow up with PMD in 1 week.
--- NOTE | 2018-02-03 11:19 | DS ---
ADMISSION DIAGNOSES: Gastroenteritis and dehydration. DISCHARGE DIAGNOSES: Gastroenteritis and dehydration. HISTORY OF PRESENT ILLNESS: This is a 52-year-old female admitted with nausea, vomiting, and abdominal pain, found to have gastroenteritis. The patient improved. She has been discharged. She is off IV fluids. The patient 's WBC is 5.9, hemoglobin 11.4, hematocrit normal, platelets are 147. Sodium 142, potassium 3.8, chloride 112, bicarbonate 21, BUN 14, creatinine 0.7. CONDITION UPON DISCHARGE: Stable. Darrel Khan MD
--- NOTE | 2018-02-03 21:52 | CARD ---
APPROVED REPORT EKG Measurement Heart [id number] <Conclusion> Normal sinus rhythm Possible Left atrial enlargement Borderline ECG
== END 2018-02-02 16:57 | disposition home or self-care (01) ==
LOC: C.ER 19:56 → C.9E 23:15 → C.3T 02-01 00:53 → C.5S 02-01 01:47
PROVIDERS: ADMIT Internal Medicine; ATTEND Internal Medicine
DX: K52.9 Noninfective gastroenteritis and colitis, unspecified (principal); E86.0 Dehydration; E87.6 Hypokalemia; J45.909 Unspecified asthma, uncomplicated; M94.0 Chondrocostal junction syndrome [Tietze]; N28.9 Disorder of kidney and ureter, unspecified; W18.30XA Fall on same level, unspecified, initial encounter; R42 Dizziness and giddiness; S09.90XA Unspecified injury of head, initial encounter; Z87.891 Personal history of nicotine dependence
CPT/HCPCS: 36415; 70450; 74022; 80048; 80053; 80320; 80324; 80345; 80346; 80349; 80353; 80358; 80361; 81001; 83690; 83992; 84484; 84703; 85025; 93005; 96361; 96372; 96374; 96375; 96376; 99285; C9113; G0378; J1650; J1885; J2405; J7030

== ENCOUNTER 2018-11-25 13:49 | Emergency (ER) | payer MEDICAID, OTHER ==
--- NOTE | 2018-11-25 14:41 | RAD ---
Date of service: 11/25/2018 PROCEDURE: CHEST RADIOGRAPH, 1 VIEW HISTORY: chest pain COMPARISON: 01/31/2018. FINDINGS: LUNGS: The lungs are well inflated and clear. There is a stable calcified granuloma in right upper lobe. PLEURA: No pneumothorax or pleural effusion. CARDIOVASCULAR: The heart is normal in size. No aortic atherosclerotic calcifications present. OSSEOUS STRUCTURES: Within normal limits for the patient's age. VISUALIZED UPPER ABDOMEN: Normal. OTHER FINDINGS: None. IMPRESSION: No active pulmonary disease.
[2018-11-25 14:55] LABS: HCG,QUALITATIVE URINE NEGATIVE (NEGATIVE)
[2018-11-25 14:56] LABS: BASO % 0.4 % (0.0-2.0); EOS % 0.5 % (0.0-4.0); HEMOGLOBIN 13.3 g/dL (11.0-16.0); LYMPH # 1.8 K/uL (1.0-4.3); LYMPH % 30.8 % (20.0-40.0); MEAN CORPUSCULAR HEMOGLOBIN 30.9 pg (27.0-31.0); MEAN CORPUSCULAR HGB CONC 33.4 g/dL (33.0-37.0); MEAN PLATELET VOLUME 8.9 fL (7.2-11.7); MONO # 0.5 K/uL (0.0-0.8); MONO % 8.7 % (0.0-10.0); NEUT # 3.5 K/uL (1.8-7.0); NEUT % 59.6 % (50.0-75.0); NRBC % 0.1 % (0.0-2.0); RBC 4.3 Mil/uL (3.80-5.20); RED CELL DISTRIBUTION WIDTH 14.7 % (11.5-14.5); URINE BILIRUBIN NEGATIVE (NEGATIVE); URINE CLARITY Clear (Clear); URINE COLOR YELLOW (YELLOW); URINE GLUCOSE (UA) Normal (Normal); WHITE BLOOD COUNT 5.9 K/uL (4.8-10.8)
[2018-11-25 14:57] LABS: MEAN CELL VOLUME 92.7 fL (81.0-99.0); URINE BACTERIA RARE (<OCC); URINE BLOOD NEGATIVE (NEGATIVE); URINE LEUKOCYTE ESTERASE NEG Leu/uL (Negative); URINE PROTEIN NEGATIVE (NEGATIVE); URINE UROBILINOGEN Normal mg/dL (0.2-1.0)
[2018-11-25 15:01] LABS: ALB/GLOB RATIO 1.2 (1.0-2.1); ALBUMIN 4.7 g/dL (3.5-5.0); ALT/SGPT 49 U/L (9-52); AST/SGOT 40 U/L (14-36); BLOOD UREA NITROGEN 19 mg/dL (7-17); CALCIUM 9.5 mg/dl (8.6-10.4); GFR NON-AFRICAN AMERICAN > 60
[2018-11-25 15:13] LABS: B-TYPE NATRIURETIC PEPTIDE 86.9 pg/mL (0-900)
[2018-11-25 16:07] VITALS: BP 136/71; PULSE 64; RESP 18; TEMP 98.1; O2SAT 100
--- NOTE | 2018-11-25 16:59 | C.PDOC ---
History Of Present Illness 55-year-old female presents to the ED for evaluation of chest pain and shortness of breath that has been ongoing "for a while." Patient also complains of leg swelling that has been ongoing for a while. Patient states she she did not take anything for the pain and has been eating normally. She denies headache, dizziness, vision change, fever, chills and cough. Chief Complaint (Nursing): Shortness Of Breath History Per: Patient History/Exam Limitations: no limitations Onset/Duration Of Symptoms: Other ("for a while") Current Symptoms Are (Timing): Still Present Quality: "Pain" Associated Symptoms: Chest Pain. denies: Fever, Chills, Bloody Cough, Prod uctive Cough Past Medical History Reviewed: Historical Data, Nursing Documentation, Vital Signs Vital Signs: Last Vital Signs Temp 98.1 F 11/25/18 16:06 Pulse 64 11/25/18 16:06 Resp 18 11/25/18 16:06 BP 136/71 11/25/18 16:06 Pulse Ox 100 11/25/18 16:06 - Medical History PMH: Asthma, HTN Denies: Chronic Kidney Disease Surgical History: Appendectomy - [facility] IRRIGATION OF EAR (02/23/15) OTHER SKIN & SUBQ I D (01/26/14) Family History: States: Unknown Family Hx - Social History Hx Tobacco Use: Yes Hx Alcohol Use: No Hx Substance Use: No - Immunization History Hx Tetanus Toxoid Vaccination: Yes (2017) Hx Influenza Vaccination: No Hx Pneumococcal Vaccination: No Review Of Systems Constitutional: Negative for: Fever, Chills Cardiovascular: Positive for: Chest Pain Respiratory: Positive for: Shortness of Breath. Negative for: Cough Physical Exam - Physical Exam Appears: Non-toxic, No Acute Distress Skin: Normal Color, Warm, Dry Head: Atraumatic, Normacephalic Eye(s): bilateral: Normal Inspection Oral Mucosa: Moist Neck: Supple Chest: Symmetrical, No Deformity, No Tenderness Cardiovascular: Rhythm Regular, No Murmur Respiratory: Normal Breath Sounds, No Rales, No Rhonchi, No Wheezing Gastrointestinal/Abdominal: Soft, No Tenderness, No Guarding, No Rebound Extremity: Normal ROM, Capillary Refill (less than 2 seconds ) Pulses: Left Dorsalis Pedis: Normal, Right Dorsalis Pedis: Normal Neurological/Psych: Oriented x3, Normal Speech, Normal Cognition ED Course And Treatment - Laboratory Results Result Diagrams: 11/25/18 14:46 11/25/18 14:46 Lab Results: Troponin I < 0.0120 ng/mL (0.00-0.120) 11/25/18 14:46 NT-Pro-B Natriuret Pep 86.9 pg/mL (0-900) 11/25/18 14:46 Total Bilirubin 0.4 mg/dL (0.2-1.3) 11/25/18 14:46 AST 40 U/L (14-36) H D 11/25/18 14:46 ALT 49 U/L (9-52) 11/25/18 14:46 Alkaline Phosphatase 88 U/L (38-126) 11/25/18 14:46 Total Protein 8.6 g/dL (6.3-8.3) H 11/25/18 14:46 Albumin 4.7 g/dL (3.5-5.0) 11/25/18 14:46 Globulin 3.9 gm/dL (2.2-3.9) 11/25/18 14:46 Albumin/Globulin Ratio 1.2 (1.0-2.1) 11/25/18 14:46 Urine Color Yellow (YELLOW) 11/25/18 14:46 Urine Clarity Clear (Clear) 11/25/18 14:46 Urine pH 5.0 (5.0-8.0) 11/25/18 14:46 Ur Specific Blessing 1.015 (1.003-1.030) 11/25/18 14:46 Urine Protein Negative mg/dL (NEGATIVE) 11/25/18 14:46 Urine Glucose (UA) Normal mg/dL (Normal) 11/25/18 14:46 Urine Ketones Negative mg/dL (NEGATIVE) 11/25/18 14:46 Urine Blood Negative (NEGATIVE) 11/25/18 14:46 Urine Nitrate Negative (NEGATIVE) 11/25/18 14:46 Urine Bilirubin Negative (NEGATIVE) 11/25/18 14:46 Urine Urobilinogen Normal mg/dL (0.2-1.0) 11/25/18 14:46 Ur Leukocyte Esterase Neg Opal/uL (Negative) 11/25/18 14:46 Urine WBC (Auto) 1 /hpf (0-5) 11/25/18 14:46 Urine RBC (Auto) 1 /hpf (0-3) 11/25/18 14:46 Urine Bacteria Rare (<OCC) 11/25/18 14:46 Urine HCG, Qual Negative (NEGATIVE) 11/25/18 14:46 Urine HCG, Qual Negative (NEGATIVE) 11/25/18 14:46 ECG: Interpreted By Me, Viewed By Me ECG Rhythm: Sinus Rhythm Interpretation Of ECG: Normal Sinus Rhythm at rate 79bpm. Normal axis and intervals. O2 Sat by Pulse Oximetry: 100 (on RA) Pulse Ox Interpretation: Normal Medical Decision Making Medical Decision Making: Progress: Bloodwork, urinalysis, CXR, and EKG ordered and reviewed. On reassessment, patient is resting comfortably, showing no signs of distress and is stable for discharge. Patient is advised to f/u with her PMD within 1-2 days for further evaluation, advised to return to the ED if symptoms persist or worsen. Disposition - [facility] - Disposition: HOME/ ROUTINE Disposition Time: 15:10 Condition: GOOD Additional Instructions: JAIME BUCK, thank you for letting us take care of you today. The emergency medical care you received today was directed at your acute symptoms. If you were prescribed any medication, please fill it and take as directed. It may take several days for your symptoms to resolve. Return to the Emergency Department if your symptoms worsen, do not improve, or if you have any other problems. Please contact your doctor or call one of the physicians/clinics you have been referred to that are listed on the Patient Visit Information form that is included in your discharge packet. Bring any paperwork you were given at discharge with you along with any medications you are taking to your follow up visit. Our treatment cannot replace ongoing medical care by a primary care provider outside of the emergency department. Thank you for allowing the [facility] team to be part of your care today. Follow up with your primary care doctor in 2-3 days for re-evaluation and further management. JAIME BUCK, sandra por dejarnos cuidar de usted hoy. La atencin mdica de emergencia que recibi hoy se dirigi a allan sntomas agudos. Si le recetaron algn medicamento, llnelo y tmelo segn las indicaciones. Los sntomas pueden tardar varios stock en resolverse. Regrese al Departamento de Emergencias si allan sntomas empeoran, no mejoran o si tiene otros problemas. Comunquese con marsh mdico o llame a lina de los mdicos / clnicas a los que alexander sido referido que figuran en el formulario de Informacin de visita al paciente que se incluye en marsh paquete de vinicio. Lleve todos los documentos que recibi al momento del vinicio junto con los medicamentos que est tomando para marsh visita de seguimiento. Nuestro tratamiento no puede reemplazar la atencin mdica continua por parte de un proveedor de atencin primaria fuera del departamento de emergencias. Sandra por permitir que el equipo de [facility] [employer] sea parte de marsh atencin hoy. Brennen un seguimiento con marsh mdico de atencin primaria en 2-3 stock para shwetha reevaluacin y manejo adicional. Prescriptions: Ibuprofen [Motrin] 600 mg PO Q6 PRN #20 tab PRN Reason: Pain, Moderate (4-7) Instructions: Muscle and Bone Pain (DC) Forms: [employer] (Sudanese) Print Language: CONGOLESE - Clinical Impression Clinical Impression: Musculoskeletal pain - Scribe Statement The provider has reviewed the documentation as recorded by the Scribe (Melony Escobar) Provider Attestation: All medical record entries made by the Scribe were at my direction and personally dictated by me. I have reviewed the chart and agree that the record accurately reflects my personal performance of the history, physical exam, medical decision making, and the department course for this patient. I have also personally directed, reviewed, and agree with the discharge instructions and disposition.
--- NOTE | 2018-11-26 12:40 | CARD ---
APPROVED REPORT Date of service: 11/25/2018 EKG Measurement Heart [id number] <Conclusion> Normal sinus rhythm Biatrial enlargement Abnormal ECG
== END 2018-11-25 16:40 | disposition home or self-care (01) ==
LOC: C.ER 13:49
DX: M79.18 Myalgia, other site (principal); Z72.0 Tobacco use; I10 Essential (primary) hypertension